=== PATIENT | female | born 1975 | race Caucasian/White ===

== ENCOUNTER 2020-05-12 09:35 | Emergency (ER) | payer MEDICAID, OTHER ==
--- NOTE | 2020-05-12 09:43 | ERPHSYRPT ---
- History of Present Illness Time Seen by Provider: 05/12/20 09:42 Source: patient Exam Limitations: no limitations Physician History: This is a 44-year-old white female who presents with 4-day history of initially having a mild sore throat, mild headache and mild cough. She also has had some myalgias and arthralgias in the last 4 days as well. This morning, her headache is still present as is her other symptoms. She has not had a fever. She has not had nausea vomiting or diarrhea. She has had some bilateral flank pain but no abdominal pain. She has not had any head injury. She states that she has not taken any Tylenol or ibuprofen for control of her symptoms. Patient denies shortness of breath and she denies chest pain. Patient denies neck pain. She also denies photophobia or light sensitivity. Timing/Duration: day(s) (4) Quality: aching Severity of Pain-Max: mild Severity of Pain-Current: mild Recent Head Trauma: no recent headache/trauma Modifying Factors: Improves With: other (Nothing) Associated Symptoms: denies symptoms Previous symptoms: no prior history Allergies/Adverse Reactions: No Known Drug Allergies Allergy (Verified 05/12/20 09:51) Travel Risk - International Travel Have you traveled outside of the country in past 3 weeks: No - Coronavirus Screening Are you exhibiting any of the following symptoms?: No Close contact with a COVID-19 positive Pt in past 14-21 Days: No - Review of Systems Constitutional: No Symptoms Eyes: No Symptoms Ears, Nose, & Throat: No Symptoms Respiratory: No Symptoms Cardiac: No Symptoms Abdominal/Gastrointestinal: No Symptoms Genitourinary Symptoms: Flank Pain (Mild bilateral) Musculoskeletal: Arthralgias, Myalgias Skin: No Symptoms Neurological: Headache Psychological: No Symptoms Endocrine: No Symptoms Hematologic/Lymphatic: No Symptoms Immunological/Allergic: No Symptoms All Other Systems: Reviewed and Negative - Past Medical History Pertinent Past Medical History: Yes - Past Surgical History Past Surgical History: Yes - Nursing Vital Signs Nursing Vital Signs: Initial Vital Signs Temperature 97.8 F 05/12/20 09:40 Pulse Rate 61 05/12/20 09:40 Blood Pressure 117/80 05/12/20 09:40 O2 Sat by Pulse Oximetry 98 05/12/20 09:40 Pain Scale Pain Intensity 8 - Physical Exam General Appearance: no apparent distress, alert, anxiety Eye Exam: PERRL/EOMI Ears, Nose, Throat Exam: pharyngeal erythema (Very mild, diffuse) Neck Exam: normal inspection, non-tender, supple, full range of motion Respiratory Exam: normal breath sounds, lungs clear, airway intact, No chest tenderness, No respiratory distress Cardiovascular Exam: regular rate/rhythm, normal heart sounds, normal peripheral pulses Gastrointestinal/Abdominal Exam: soft, normal bowel sounds, No tenderness Back Exam: normal inspection, normal range of motion, No CVA tenderness, No vertebral tenderness Extremity Exam: normal inspection, normal range of motion, pelvis stable Mental Status 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, 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 Exam: normal hearing, normal speech, PERRL, abnormal eye position Coordination/Gait Exam: normal gait, normal cerebellar function Motor/Sensory Exam: no motor deficit, no sensory deficit Skin Exam: normal color, warm, dry Lymphatic Exam: No adenopathy SpO2 Interpretation: normal O2 Delivery: Room Air - Course Nursing assessment & vital signs reviewed: Yes Ordered Tests: Active Orders 24 hr Category Date Time Status CULTURE,URINE Stat Lab 05/12/20 10:14 Received INFLUENZA A+B ADILSON Stat Lab 05/12/20 10:05 Completed [place] Screen Stat Lab 05/12/20 10:14 Completed UA W/RFX UR CULTURE Stat Lab 05/12/20 10:14 Completed Lab/Rad Data: Laboratory Results 05/12/20 05/12/20 05/12/20 Range/Units 10:14 10:14 10:14 Urine Color YELLOW (YELLOW) Urine Appearance CLEAR (CLEAR) Urine pH 6.0 (5-6) Ur Specific [place] 1.011 (1.005-1.025) Urine Protein NEGATIVE (Negative) Urine Ketones NEGATIVE (NEGATIVE) Urine Blood NEGATIVE (0-5) Jake/ul Urine Nitrite NEGATIVE (NEGATIVE) Urine Bilirubin NEGATIVE (NEGATIVE) Urine Urobilinogen NEGATIVE (0-1) mg/dL Ur Leukocyte Esterase SMALL (NEGATIVE) Urine WBC (Auto) 6-10 (0-5) /HPF Urine RBC (Auto) 0-2 (0-2) /HPF U Epithel Cells (Auto) RARE (FEW) /HPF Urine Bacteria (Auto) FEW (NEGATIVE) /HPF Urine Mucus (Auto) SLIGHT (NEGATIVE) /HPF Urine Culture Reflexed YES (NO) Urine Glucose NEGATIVE (NEGATIVE) mg/dL Monoscreen NEGATIVE (Negative) Influenza Type A Ag (NEGATIVE) Influenza Type B Ag (NEGATIVE) Group A Strep Antibody NEGATIVE (NEGATIVE) 05/12/20 Range/Units 10:05 Urine Color (YELLOW) Urine Appearance (CLEAR) Urine pH (5-6) Ur Specific [place] (1.005-1.025) Urine Protein (Negative) Urine Ketones (NEGATIVE) Urine Blood (0-5) Jake/ul Urine Nitrite (NEGATIVE) Urine Bilirubin (NEGATIVE) Urine Urobilinogen (0-1) mg/dL Ur Leukocyte Esterase (NEGATIVE) Urine WBC (Auto) (0-5) /HPF Urine RBC (Auto) (0-2) /HPF U Epithel Cells (Auto) (FEW) /HPF Urine Bacteria (Auto) (NEGATIVE) /HPF Urine Mucus (Auto) (NEGATIVE) /HPF Urine Culture Reflexed (NO) Urine Glucose (NEGATIVE) mg/dL Monoscreen (Negative) Influenza Type A Ag NEGATIVE (NEGATIVE) Influenza Type B Ag NEGATIVE (NEGATIVE) Group A Strep Antibody (NEGATIVE) - Progress Progress: improved, re-examined Counseled pt/family regarding: lab results, diagnosis, need for follow-up - Departure Departure Disposition: Home Clinical Impression: Headache, Urinary tract infection Condition: Stable Critical Care Time: No Referrals: Provider,Unknown [NON-STAFF PHY W/O PRIVILEGES] - Additional Instructions: Drink plenty of fluids. Use Tylenol and ibuprofen for headache and other aches and pain control. Follow-up with your primary care physician for persistent sym ptoms. Return to the emergency department if your symptoms worsen. Prescriptions: Cephalexin Mh 500 mg [Keflex 500 mg] 500 mg PO TID #21 capsule
[2020-05-12 10:41] LABS: Appearance CLEAR (CLEAR); Bilirubin NEGATIVE (NEGATIVE); Blood NEGATIVE Ery/ul (0-5); Epithelial Cells RARE /HPF (FEW); Glucose NEGATIVE (NEGATIVE); Ketones NEGATIVE (NEGATIVE); Leukocyte Esterase SMALL (NEGATIVE); Mucus SLIGHT /HPF (NEGATIVE); Nitrite NEGATIVE (NEGATIVE); Protein,Urine Dip NEGATIVE (Negative); Specific Gravity 1.011 (1.005-1.025); Urobilinogen NEGATIVE mg/dL (0-1)
[2020-05-12 10:42] LABS: Bacteria FEW /HPF (NEGATIVE); RBC 0-2 /HPF (0-2)
[2020-05-12 11:01] LABS: INFLUENZA A NEGATIVE (NEGATIVE); INFLUENZA B NEGATIVE (NEGATIVE)
[2020-05-12 11:13] VITALS: O2SAT 97
[2020-05-12] MEDS ORDERED: MORPHINE SULFATE 4 MG INJ IM ONE (11:15)
[2020-05-12] MEDS ORDERED: KEFLEX 500 MG PO ONE (11:15)
[2020-05-12] MEDS ORDERED: ZOFRAN ODT 4 MG PO ONE (11:16)
[2020-05-12] MEDS ORDERED: ZOFRAN ODT 4 MG ONE (11:19)
[2020-05-12] MEDS ORDERED: KEFLEX 500 MG ONE (11:19)
[2020-05-12] MEDS ORDERED: MORPHINE SULFATE 4 MG INJ ONE (11:19)
[2020-05-12 11:28] VITALS: BP 126/72; PULSE 64
== END 2020-05-12 11:34 | disposition home or self-care (01) ==
LOC: ED 09:35
DX: R51.9 Headache, unspecified (principal); N39.0 Urinary tract infection, site not specified
CPT/HCPCS: 36415; 81001; 86308; 87086; 87400; 87651; 96372; 99284; U0003; J2270; Q0162; A9270-GY

== ENCOUNTER 2020-07-31 11:58 | Emergency (ER) | payer OTHER ==
[2020-07-31 12:16] VITALS: O2SAT 98
[2020-07-31] MEDS ORDERED: DECADRON 10MG INJ. IM ONE (12:32)
[2020-07-31] MEDS ORDERED: TORAdol 30 mg Injection IM ONE (12:33)
--- NOTE | 2020-07-31 12:33 | ERPHSYRPT ---
- History of Present Illness Time Seen by Provider: 07/31/20 12:30 Exam Limitations: no limitations Patient Subjective Stated Complaint: Back pain Triage Nursing Assessment: Patient ambulated back to ED and transferred self to bed. Patient A+O x3. patient's skin pink, warm and dry. Patient complains of neck and back pain 10/10 constant sharp pain. Patient denies recent trauma or injury. Patient states she has been dealing with the pain for 3 months, but the pain is unbearable the past 3 weeks. Patient states she was seeing a chiropractor, but he refuses to see her until she sees her PCP. Patient states pain is too bad to wait to get in with PCP. Physician History: Patient is a 44-year-old female presents to emergency department with complaints of flareup of her chronic neck and back pain. Patient arrived in private vehicle. Patient is ambulatory. 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 Patient now works for [employer]. Patient states her chronic pain has gotten worse over the past 3 months likely because of her jobs. Patient denies trauma no fever. Patient started seeing a chiropractor. However she went to the chiropractor yesterday who refused to see her because he wants her to be cleared by her primary care physician first. Patient is from [place]. She recently moved to [place]. Patient is currently scheduled to see Dr. Fairchild. Patient's pain is the same in character and intensity of her usual back pain. No different characteristics. No chest pain or shortness of breath. No nausea vomiting or diaphoresis. No numbness tingling or weakness. Patient is otherwise healthy. She voices no other complaints concerns at this time. Timing/Duration: today Method of Injury: unknown (No physical trauma. Patient states that she is got chronic arthritis of her back that typically flares up spontaneously.) Quality: aching Back Pain Location: C-spine, T-spine Severity of Pain-Max: moderate (No radiation of pain.) Severity of Pain-Current: mild Modifying Factors: Improves With: movement Associated Symptoms: denies symptoms Previous symptoms: same symptoms as today Allergies/Adverse Reactions: No Known Drug Allergies Allergy (Verified 07/31/20 12:06) Hx Influenza Vaccination/Date Given: No Hx Pneumococcal Vaccination/Date Given: No Immunizations Up to Date: Yes Travel Risk - International Travel Have you traveled outside of the country in past 3 weeks: No - Coronavirus Screening Are you exhibiting any of the following symptoms?: No Close contact with a COVID-19 positive Pt in past 14-21 Days: No - Vaccine Status Have you recieved a Covid-19 vaccination: Yes 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 - Vaccination Dates Date of 2cond Vaccination (if applicable): unknown - Review of Systems Constitutional: No Symptoms, No Fever, No Chills Eyes: No Symptoms Ears, Nose, & Throat: No Symptoms Respiratory: No Symptoms, No Cough, No Dyspnea Cardiac: No Symptoms, No Chest Pain, No Edema, No Syncope Abdominal/Gastrointestinal: No Symptoms, No Abdominal Pain, No Nausea, No Vomiting, No Diarrhea Genitourinary Symptoms: No Symptoms, No Dysuria Musculoskeletal: No Symptoms, No Back Pain, No Neck Pain Skin: No Symptoms, No Rash Neurological: No Symptoms, No Dizziness, No Focal Weakness, No Sensory Changes Psychological: No Symptoms Endocrine: No Symptoms Hematologic/Lymphatic: No Symptoms Immunological/Allergic: No Symptoms All Other Systems: Reviewed and Negative - Past Medical History Pertinent Past Medical History: Yes Neurological History: No Pertinent History ENT History: No Pertinent History Respiratory History: No Pertinent History Endocrine Medical History: No Pertinent History Other Medical History: bipolor, PTSD, manic depression, arthritis, scoliosis - Past Surgical History Past Surgical History: Yes Female Surgical History: Tubal Ligation Other Surgical History: breast augmentation - Social History Smoking Status: Current every day smoker How long have you smoked: years Exposure to second hand smoke: No Drug Use: marijuana Patient Lives Alone: Yes - Female History Hx Last Menstrual Period: 2 months ago Hx Now: No - Nursing Vital Signs Nursing Vital Signs: Initial Vital Signs Temperature 98.2 F 07/31/20 12:09 Pulse Rate 86 07/31/20 12:09 Respiratory Rate 18 07/31/20 12:09 Blood Pressure 149/94 07/31/20 12:09 O2 Sat by Pulse Oximetry 98 07/31/20 12:09 Pain Scale Pain Intensity 10 - Physical Exam General Appearance: no apparent distress, alert Eye Exam: PERRL/EOMI, eyes nml inspection Neck Exam: normal inspection, non-tender, supple, full range of motion, other (No limitations in range of motion however patient's movements are guarded.), No meningismus, No midline tenderness Respiratory Exam: normal breath sounds, lungs clear, No respiratory distress Cardiovascular Exam: regular rate/rhythm, normal heart sounds Gastrointestinal Exam: soft, No tenderness, No mass Extremity Exam: normal inspection, normal range of motion, No calf tenderness, No pedal edema Peripheral Pulses: dorsalis-pedis (R): 2+, dorsalis-pedis (L): 2+ Neurologic Exam: alert, oriented x 3, cooperative, exhaust tender II-XII nml as tested, normal mood/affect, nml station & gait, sensation nml, No motor deficits Skin Exam: normal color, warm, dry, No rash Lymphatic Exam: No adenopathy SpO2 Interpretation: normal SpO2: 98 O2 Delivery: Room Air - Course Nursing assessment & vital signs reviewed: Yes Ordered Tests: Medication Summary Discontinued Medications Generic Name Dose Route Start Last Admin Trade Name Wardq PRN Reason Stop Dose Admin Dexamethasone Sodium Phosphate 6 mg 07/31/20 12:32 07/31/20 12:44 Decadron 10mg Inj. IM 07/31/20 12:33 6 mg STAT ONE Administration Dexamethasone Sodium Phosphate Confirm 07/31/20 12:39 Decadron 10mg Inj. Administered 07/31/20 12:40 Dose 10 mg .ROUTE .STK-MED ONE Ketorolac Tromethamine 30 mg 07/31/20 12:33 07/31/20 12:44 Toradol 30 Mg Injection IM 07/31/20 12:34 30 mg STAT ONE Administration Ketorolac Tromethamine Confirm 07/31/20 12:39 Toradol 30 Mg Injection Administered 07/31/20 12:40 Dose 30 mg .ROUTE .STK-MED ONE - Progress Progress: improved Progress Note: Patient reassessed. Pain significantly improved. Patient states is ready for discharge. Patient currently has an appointment scheduled with Dr. Fairchild. However patient was advised to call the office and to follow-up sooner than the scheduled appointment. Patient agrees to call today and to arrange a follow-up for early next week. Patient voices no other complaints concerns at this time. Will discharge home. 07/31/20 13:42 Counseled pt/family regarding: diagnosis, need for follow-up - Departure Departure Disposition: Home Clinical Impression: Chronic pain Condition: Stable Critical Care Time: No Referrals: DOCTOR,NO FAMILY [NON-STAFF PHY W/O PRIVILEGES] - DAVON FAIRCHILD [Primary Care Provider] - Additional Instructions: Discharge/Care Plan RICHARD MATHIAS was seen on 07/31/20 in the Emergency Room. The patient was counseled regarding Diagnosis,Lab results, Imaging studies, need for follow up and when to return to the Emergency Room. Prescriptions given: Discharge Note I have spoken with the patient and/or caregivers. I have explained the patient's condition, diagnosis and treatment plan based on the information available to me at this time. I have answered the patient's and/or caregiver's questions and addressed any concerns. The patient and/or caregivers have as good understanding of the patient's diagnosis, condition and treatment plan as can be expected at this point. The vital signs have been stable. The patient's condition is stable and appropriate for discharge from the emergency department. The patient will pursue further outpatient evaluation with the primary care physician or other designated or consulting physician as outlined in the discharge instructions. The patient and/or caregivers are agreeable to this plan of care and follow-up instructions have been explained in detail. The patient and/or caregivers have received these instruction. The patient/and or caregivers are aware that any significant change in condition or worsening of symptoms should prompt an immediate return to this or the closest emergency department or call 911. Prescriptions: Ketorolac Tromethamine [Toradol] 10 mg PO TID 5 Days #15 tablet
[2020-07-31] MEDS ORDERED: DECADRON 10MG INJ. ONE (12:39)
[2020-07-31] MEDS ORDERED: TORAdol 30 mg Injection ONE (12:39)
[2020-07-31 14:09] VITALS: BP 128/85; PULSE 68
== END 2020-07-31 14:00 | disposition home or self-care (01) ==
LOC: ED 11:58
DX: G89.29 Other chronic pain (principal)
CPT/HCPCS: 96372; 99284; J1100; J1885

== ENCOUNTER 2020-09-27 11:54 | Emergency (ER) | payer OTHER ==
[2020-09-27] MEDS ORDERED: MORPHINE SULFATE 2 MG INJ IV ONE (12:23)
[2020-09-27] MEDS ORDERED: Sodium Chloride 0.9% 1000 ML 1,000 ML IV STA (12:23)
[2020-09-27] MEDS ORDERED: TYLENOL 325 MG PO ONE (12:23)
[2020-09-27] MEDS ORDERED: PROTONIX 40 MG IV IV ONE ×2 (12:23→12:50)
[2020-09-27] MEDS ORDERED: Zofran 4 MG/2 ML VIAL IV ONE (12:23)
[2020-09-27] MEDS ORDERED: Zofran 4 MG/2 ML VIAL ONE (12:50)
[2020-09-27] MEDS ORDERED: MORPHINE SULFATE 2 MG INJ ONE (12:50)
[2020-09-27] MEDS ORDERED: TYLENOL 325 MG ONE (12:50)
[2020-09-27] MEDS ORDERED: Sodium Chloride 0.9% 1000 ML 1,000 ML ONE (12:51)
[2020-09-27 13:19] LABS: ALBUMIN 4.4 g/dL (3.5-5.0); ALKALINE PHOSPHATASE 66 U/L (38-126); ANION GAP 15.7 MEQ/L (5-15); BLOOD UREA NITROGEN 10 mg/dL (7-17); CHLORIDE 102 mmol/L (98-107); Calcium 9.2 mg/dL (8.4-10.2); Carbon Dioxide 23 mmol/L (22-30); Creatinine 1 0.62 mg/dL (0.52-1.04); EST GLOMERULAR FILTRATION RATE > 60.0 ML/MIN; Glucose 92 mg/dL (74-106); LIPASE 53 U/L (23-300); Potassium 4.7 mmol/L (3.5-5.1); SGOT/AST 30 U/L (14-36); SGPT/ALT 13 U/L (0-35); SODIUM 136 mmol/L (137-145); Total Protein 7.8 g/dL (6.3-8.2)
[2020-09-27 13:21] LABS: Absolute Neutrophil Ct (ANC) 13.98 (1.4-6.9); BASOPHIL % 0.3 % (0.0-0.4); Basophil (Absolute #) 0.06 (0-0.4); Eosinophil % 2.1 % (0.00-5.0); Eosinophil (Absolute #) 0.37 (0-0.5); Hematocrit 45.9 % (35-47); Hemoglobin 15.1 gm/dl (12.0-16.0); Lymphocyte (Absolute #) 2.26 (1.0-4.6); Lymphocytes % 12.9 % (24.0-44.0); Mean Cell Volume 92.9 fl (78-100); Mean Corpuscular Hemoglobin 30.6 pg (26-32); Mean Corpuscular Hgb Concent. 32.9 g/dl (32-36); Mean Platelet Volume 11.3 fl (7.5-11.0); Monocyte (Absolute #) 0.89 (0.0-1.3); Monocytes % 5.1 % (0.0-12.0); Neutrophil % 79.6 % (36.0-66.0); Platelet Count 280 K/mm3 (150-450); Red Blood Count 4.94 M/mm3 (4.1-5.4); Red Cell Distribution Width 14.7 % (11.5-14.0); White Blood Count 17.6 K/mm3 (4.0-10.5)
--- NOTE | 2020-09-27 13:37 | ERPHSYRPT ---
- History of Present Illness Time Seen by Provider: 09/27/20 12:02 Patient Subjective Stated Complaint: "I feel like I have a hangover" body aches, headache, nausea Triage Nursing Assessment: pt to ED c/o body aches, ANN, and nausea since waking this am. reports she feels "likeI have a hangover, but I don't get hangovers." does report drinking one glass of whiskey last night but normally drinks more than that few days a week. no vomiting, fever, COVID exposure. Physician History: 44 years old fairly healthy female presented in ER with chief complaint of sudden onset nausea and dry heaving waking her up from sleep and multiple episodes of loose watery stool without hematochezia. Complaining of abdominal dull aching/cramping mild to moderate with episodes of diarrhea and dry heaving. Also reports generalized body ache fatigue tiredness, headache sinus pressure as it feels she is in a hangover after alcohol but she did not drink any alcohol.. She did receive both Covid vaccines and denies any known sick contacts. Timing/Duration: today, constant, sudden, worse Activities at Onset: sleep Quality: aching Abdominal Pain Onset Location: generalized abdomen Pain Radiation: no radiation Severity of Pain-Max: mild Severity of Pain-Current: none Modifying Factors: Worsens With: vomiting Associated Symptoms: No diarrhea, No nausea, No vomiting Previous symptoms: no prior history Allergies/Adverse Reactions: No Known Drug Allergies Allergy (Verified 09/27/20 12:11) Home Medications: Cyclobenzaprine HCl 5 mg PO HS 09/27/20 [History] Naproxen 500 mg [Naprosyn 500 MG] 500 mg PO BIDPRN PRN 09/27/20 [History] Hx Tetanus, Diphtheria Vaccination/Date Given: No Hx Influenza Vaccination/Date Given: No Hx Pneumococcal Vaccination/Date Given: No Immunizations Up to Date: No Travel Risk - International Travel Have you traveled outside of the country in past 3 weeks: No - Coronavirus Screening Are you exhibiting any of the following symptoms?: Yes Symptoms: Headaches/Body Aches/Fatigue Close contact with a COVID-19 positive Pt in past 14-21 Days: No - Vaccine Status Have you recieved a Covid-19 vaccination: Yes Gift Consultant: Moderna - Vaccination Dates Date of 2cond Vaccination (if applicable): May - Review of Systems Constitutional: Chills, Fatigue, Weakness Eyes: No Symptoms Ears, Nose, & Throat: Nose Congestion, Nose Discharge Respiratory: No Symptoms Cardiac: No Symptoms Abdominal/Gastrointestinal: Abdominal Pain, Nausea, Vomiting, Diarrhea Genitourinary Symptoms: No Symptoms Musculoskeletal: Myalgias Skin: No Symptoms Neurological: No Symptoms Psychological: Anxiety Endocrine: No Symptoms Hematologic/Lymphatic: No Symptoms Immunological/Allergic: No Symptoms - Past Medical History Pertinent Past Medical History: Yes Neurological History: No Pertinent History ENT History: No Pertinent History Respiratory History: No Pertinent History Endocrine Medical History: No Pertinent History Other Medical History: bipolor, PTSD, manic depression, arthritis, scoliosis - Past Surgical History Past Surgical History: Yes Female Surgical History: Tubal Ligation Other Surgical History: breast augmentation - Social History Smoking Status: Current every day smoker How long have you smoked: years Exposure to second hand smoke: No Drug Use: marijuana Patient Lives Alone: Yes - Female History Hx Now: No (tubal) - Nursing Vital Signs Nursing Vital Signs: Initial Vital Signs Temperature 97.8 F 09/27/20 12:02 Pulse Rate 65 09/27/20 12:02 Respiratory Rate 16 09/27/20 12:02 Blood Pressure 153/98 09/27/20 12:02 O2 Sat by Pulse Oximetry 100 09/27/20 12:02 Pain Scale Pain Intensity 0 - Physical Exam General Appearance: no apparent distress, alert, anxiety Eye Exam: PERRL/EOMI, eyes nml inspection Ears, Nose, Throat Exam: normal ENT inspection, TMs normal, pharynx normal Neck Exam: normal inspection, non-tender, supple, full range of motion Respiratory Exam: normal breath sounds, lungs clear Cardiovascular Exam: regular rate/rhythm, normal heart sounds Gastrointestinal/Abdomen Exam: soft, normal bowel sounds, No tenderness Back Exam: normal inspection, normal range of motion, No CVA tenderness Extremity Exam: normal inspection, normal range of motion, pelvis stable Neurologic Exam: alert, oriented x 3, cooperative, manager dish II-XII nml as tested, normal mood/affect, nml cerebellar function, nml station & gait, sensation nml Skin Exam: normal color SpO2 Interpretation: normal SpO2: 100 O2 Delivery: Room Air Ordered Tests: Active Orders 24 hr Category Date Time Status IV Insertion STAT Care 09/27/20 12:23 Completed NPO (ED) STAT Care 09/27/20 12:23 Completed OBSTR/ACUTE ABDOMEN SERIES Stat Exams 09/27/20 12:23 Taken CBC W DIFF Stat Lab 09/27/20 12:50 Completed CMP Stat Lab 09/27/20 12:50 Completed HCG,QUALITATIVE URINE Stat Lab 09/27/20 12:32 Completed LIPASE Stat Lab 09/27/20 12:50 Completed UA W/RFX UR CULTURE Stat Lab 09/27/20 12:32 Completed Medication Summary Discontinued Medications Generic Name Dose Route Start Last Admin Trade Name Yarelis PRN Reason Stop Dose Admin Acetaminophen 975 mg 09/27/20 12:23 09/27/20 12:55 Tylenol 325 Mg PO 09/27/20 12:24 975 mg STAT ONE Administration Acetaminophen Confirm 09/27/20 12:50 Tylenol 325 Mg Administered 09/27/20 12:51 Dose 975 mg .ROUTE .STK-MED ONE Sodium Chloride 1,000 mls @ 999 mls/hr 09/27/20 12:23 09/27/20 13:56 Sodium Chloride 0.9% 1000 Ml IV 09/27/20 13:23 Infused .Q1H1M STA Infusion Sodium Chloride Confirm 09/27/20 12:51 Sodium Chloride 0.9% 1000 Ml Administered 09/27/20 12:52 Dose 1,000 mls @ ud .ROUTE .STK-MED ONE Morphine Sulfate 2 mg 09/27/20 12:23 09/27/20 12:56 Morphine Sulfate 2 Mg Inj IV 09/27/20 12:24 2 mg STAT ONE Administration Morphine Sulfate Confirm 09/27/20 12:50 Morphine Sulfate 2 Mg Inj Administered 09/27/20 12:51 Dose 2 mg .ROUTE .STK-MED ONE Ondansetron HCl 4 mg 09/27/20 12:23 09/27/20 12:56 Zofran 4 Mg/2 Ml Vial IV 09/27/20 12:24 4 mg STAT ONE Administration Ondansetron HCl Confirm 09/27/20 12:50 Zofran 4 Mg/2 Ml Vial Administered 09/27/20 12:51 Dose 4 mg .ROUTE .STK-MED ONE Pantoprazole Sodium 40 mg 09/27/20 12:23 09/27/20 12:56 Protonix 40 Mg Iv IV 09/27/20 12:24 40 mg STAT ONE Administration Pantoprazole Sodium Confirm 09/27/20 12:50 Protonix 40 Mg Iv Administered 09/27/20 12:51 Dose 40 mg IV .STK-MED ONE Lab/Rad Data: Laboratory Result Diagrams 09/27/20 12:50 09/27/20 12:50 Laboratory Results 09/27/20 09/27/20 09/27/20 Range/Units 13:00 12:50 12:50 WBC 17.6 H (4.0-10.5) K/mm3 RBC 4.94 (4.1-5.4) M/mm3 Hgb 15.1 (12.0-16.0) gm/dl Hct 45.9 (35-47) % MCV 92.9 (78-100) fl MCH 30.6 (26-32) pg MCHC 32.9 (32-36) g/dl RDW 14.7 H (11.5-14.0) % Plt Count 280 (150-450) K/mm3 MPV 11.3 H (7.5-11.0) fl Gran % 79.6 H (36.0-66.0) % Eos # (Auto) 0.37 (0-0.5) Absolute Lymphs (auto) 2.26 (1.0-4.6) Absolute Monos (auto) 0.89 (0.0-1.3) Lymphocytes % 12.9 L (24.0-44.0) % Monocytes % 5.1 (0.0-12.0) % Eosinophils % 2.1 (0.00-5.0) % Basophils % 0.3 (0.0-0.4) % Absolute Granulocytes 13.98 H (1.4-6.9) Basophils # 0.06 (0-0.4) Sodium 136 L (137-145) mmol/L Potassium 4.7 (3.5-5.1) mmol/L Chloride 102 (98-107) mmol/L Carbon Dioxide 23 (22-30) mmol/L Anion Gap 15.7 H (5-15) MEQ/L BUN 10 (7-17) mg/dL Creatinine 0.62 (0.52-1.04) mg/dL Estimated GFR > 60.0 ML/MIN Glucose 92 (74-106) mg/dL Calcium 9.2 (8.4-10.2) mg/dL Total Bilirubin 0.80 (0.2-1.3) mg/dL AST 30 (14-36) U/L ALT 13 (0-35) U/L Alkaline Phosphatase 66 (38-126) U/L Serum Total Protein 7.8 (6.3-8.2) g/dL Albumin 4.4 (3.5-5.0) g/dL Lipase 53 (23-300) U/L Urine Color (YELLOW) Urine Appearance (CLEAR) Urine pH (5-6) Ur Specific [place] (1.005-1.025) Urine Protein (Negative) Urine Ketones (NEGATIVE) Urine Blood (0-5) Jake/ul Urine Nitrite (NEGATIVE) Urine Bilirubin (NEGATIVE) Urine Urobilinogen (0-1) mg/dL Ur Leukocyte Esterase (NEGATIVE) Urine WBC (Auto) (0-5) /HPF Urine RBC (Auto) (0-2) /HPF U Epithel Cells (Auto) (FEW) /HPF Urine Bacteria (Auto) (NEGATIVE) /HPF Urine Culture Reflexed (NO) Urine Glucose (NEGATIVE) mg/dL Urine HCG, Qual (Negative) SARS-CoV-2 (PCR) NEGATIVE (NEGATIVE) 09/27/20 09/27/20 Range/Units 12:32 12:32 WBC (4.0-10.5) K/mm3 RBC (4.1-5.4) M/mm3 Hgb (12.0-16.0) gm/dl Hct (35-47) % MCV (78-100) fl MCH (26-32) pg MCHC (32-36) g/dl RDW (11.5-14.0) % Plt Count (150-450) K/mm3 MPV (7.5-11.0) fl Gran % (36.0-66.0) % Eos # (Auto) (0-0.5) Absolute Lymphs (auto) (1.0-4.6) Absolute Monos (auto) (0.0-1.3) Lymphocytes % (24.0-44.0) % Monocytes % (0.0-12.0) % Eosinophils % (0.00-5.0) % Basophils % (0.0-0.4) % Absolute Granulocytes (1.4-6.9) Basophils # (0-0.4) Sodium (137-145) mmol/L Potassium (3.5-5.1) mmol/L Chloride (98-107) mmol/L Carbon Dioxide (22-30) mmol/L Anion Gap (5-15) MEQ/L BUN (7-17) mg/dL Creatinine (0.52-1.04) mg/dL Estimated GFR ML/MIN Glucose (74-106) mg/dL Calcium (8.4-10.2) mg/dL Total Bilirubin (0.2-1.3) mg/dL AST (14-36) U/L ALT (0-35) U/L Alkaline Phosphatase (38-126) U/L Serum Total Protein (6.3-8.2) g/dL Albumin (3.5-5.0) g/dL Lipase (23-300) U/L Urine Color YELLOW (YELLOW) Urine Appearance SLIGHTLY CLOUDY (CLEAR) Urine pH 7.0 (5-6) Ur Specific [place] 1.015 (1.005-1.025) Urine Protein NEGATIVE (Negative) Urine Ketones NEGATIVE (NEGATIVE) Urine Blood NEGATIVE (0-5) Jake/ul Urine Nitrite NEGATIVE (NEGATIVE) Urine Bilirubin NEGATIVE (NEGATIVE) Urine Urobilinogen NEGATIVE (0-1) mg/dL Ur Leukocyte Esterase SMALL (NEGATIVE) Urine WBC (Auto) 6-10 (0-5) /HPF Urine RBC (Auto) 0-2 (0-2) /HPF U Epithel Cells (Auto) RARE (FEW) /HPF Urine Bacteria (Auto) RARE (NEGATIVE) /HPF Urine Culture Reflexed NO (NO) Urine Glucose NEGATIVE (NEGATIVE) mg/dL Urine HCG, Qual NEGATIVE (Negative) SARS-CoV-2 (PCR) (NEGATIVE) - Progress Progress: improved, re-examined Progress Note: 09/27/20 14:25 44 years old is evaluated for nausea/dry heaving and diarrhea with some abdomi nal cramping. She patient's cramps are moderate improved on presentation. No peritoneal signs on evaluation initially and on repeated evaluation. She is given Zofran and fluids, on reevaluation feeling much better. Work-up showed white count of 17, grossly unremarkable chemistries. Questionable UTI but does not have any symptoms. Patient feels much better and wants to go home. I have obtained x-rays which showed nonspecific bowel gas pattern reviewed by me, official report is pending. She has a white count of 17 but no previous comparison available, nontoxic appearing. This could be secondary to acute reaction to multiple episodes of diarrhea and dry heaving/vomiting. Abdominal exam remained nonsurgical. Discussed signs symptoms of worsening needing return to ER which patient seemed understanding. Stable for discharge. Counseled pt/family regarding: lab results, diagnosis, need for follow-up, rad results, smoking cessation - Departure Departure Disposition: Home Clinical Impression: Gastroenteritis Condition: Stable Critical Care Time: No Referrals: DAVON FAIRCHILD [Primary Care Provider] - (2 days for reevaluation) Instructions: Viral Gastroenteritis, Adult (DC), Headache, Adult (DC) Additional Instructions: Take Tylenol and Zofran as needed. Keep yourself well-hydrated with drinking plenty of fluids. Follow-up with primary care physician for reevaluation. Return to ER for intractable abdominal pain/vomiting/fever chills etc. Prescriptions: Ondansetron ODT 4 MG [Zofran Odt 4 mg] 4 mg PO Q6H PRN PRN #10 tablet PRN Reason: Vomiting
[2020-09-27 14:07] LABS: Appearance SLIGHTLY CLOUDY (CLEAR); Bacteria RARE /HPF (NEGATIVE); Bilirubin NEGATIVE (NEGATIVE); Blood NEGATIVE Ery/ul (0-5); Epithelial Cells RARE /HPF (FEW); Glucose NEGATIVE (NEGATIVE); Ketones NEGATIVE (NEGATIVE); Leukocyte Esterase SMALL (NEGATIVE); Nitrite NEGATIVE (NEGATIVE); Protein,Urine Dip NEGATIVE (Negative); RBC 0-2 /HPF (0-2); Specific Gravity 1.015 (1.005-1.025); Urobilinogen NEGATIVE mg/dL (0-1)
[2020-09-27 14:17] VITALS: BP 122/90; PULSE 60
[2020-09-27 14:27] VITALS: O2SAT 100
--- NOTE | 2020-09-27 19:41 | XRAY ---
Indication: Vomiting, bodyaches, diarrhea, nausea, and vomiting. Comparison: Chest exam February 10, 2009. 2 view abdomen nonacute and nonobstructed. Solid organs unremarkable. Osseous structures intact with mild levoscoliosis centered at L1. Single AP chest remains hyperinflated and clear. Heart is not enlarged. Bony thorax intact. Impression: Negative abdomen. Stable nonacute chest. Incidental scoliosis.
== END 2020-09-27 14:32 | disposition home or self-care (01) ==
LOC: ED 11:54
DX: K29.70 Gastritis, unspecified, without bleeding (principal)
CPT/HCPCS: 36000; 36415; 74022; 80053; 81001; 83690; 84703; 85025; 96374; 96375; 99284; U0003; J2270; J2405; A9270-GY

== ENCOUNTER 2020-12-21 22:27 | Emergency (ER) | payer OTHER ==
[2020-12-21] MEDS ORDERED: solu-MEDROL 125 MG, Sterile H2O 10 ml 2 ML IV ONE ×2 (22:50)
[2020-12-21] MEDS ORDERED: Pepcid 20 MG VIAL IV ONE ×2 (22:50→23:06)
[2020-12-21] MEDS ORDERED: BENADRYL 50 MG/ML IV ONE (22:50)
--- NOTE | 2020-12-21 23:01 | ERPHSYRPT ---
- History of Present Illness Time Seen by Provider: 12/21/20 22:41 Source: patient Exam Limitations: no limitations Physician History: 45 years old female presented in the ER with chief complaint of right angle of mandible/upper neck/front of ear pain and swelling almost half an hour prior to arrival after she did eat some steak with increasing pressure tightness and throbbing pain. Also reports having scratchiness in the throat but no difficulty breathing. Denies any history of any allergies or previous anaphylactic reaction. Timing/Duration: hour(s) (0.5), constant, sudden, worse Severity: moderate Associated Symptoms: denies symptoms Allergies/Adverse Reactions: No Known Drug Allergies Allergy (Verified 09/27/20 12:11) Home Medications: Cyclobenzaprine HCl 5 mg PO HS 09/27/20 [History] Naproxen 500 mg [Naprosyn 500 MG] 500 mg PO BIDPRN PRN 09/27/20 [History] Hx Tetanus, Diphtheria Vaccination/Date Given: No Hx Influenza Vaccination/Date Given: No Hx Pneumococcal Vaccination/Date Given: No Travel Risk - Vaccine Status Have you recieved a Covid-19 vaccination: Yes Medical Assembler: Moderna - Vaccination Dates Date of 2cond Vaccination (if applicable): June - Review of Systems Constitutional: No Symptoms Eyes: No Symptoms Ears, Nose, & Throat: Mouth Swelling, Throat Pain, Throat Swelling Respiratory: No Symptoms Cardiac: No Symptoms Abdominal/Gastrointestinal: No Symptoms Genitourinary Symptoms: No Symptoms Musculoskeletal: No Symptoms Skin: No Symptoms Neurological: No Symptoms Psychological: Anxiety Endocrine: No Symptoms Hematologic/Lymphatic: No Symptoms - Past Medical History Pertinent Past Medical History: Yes Neurological History: No Pertinent History ENT History: No Pertinent History Cardiac History: No Pertinent History Respiratory History: Other Endocrine Medical History: No Pertinent History Musculoskeletal History: Degenerative Disk Disease, Osteoarthritis Other Medical History: BIPOLAR DISEASE - STATES DOESN'T TAKE MEDICATION FOR IT BECAUSE SHE DOESN'T LIKE HOW IT MAKES HER FEEL. WAS QUARANTINED UNTIL LAST TUESDAY DUE TO HEADACHE, DIARRHEA, AND FEVER. STATES WAS TESTED AND WAS NEGATIVE BUT CONTINUED QUARANTINE X 2 WEEKS. NO SYMPTOMS FOR THE PAST 12 DAYS. PATIENT IS FULLY VACCINATED. - Past Surgical History Past Surgical History: Yes Female Surgical History: Tubal Ligation Other Surgical History: breast augmentation - Social History Smoking Status: Current every day smoker How long have you smoked: years Exposure to second hand smoke: No Drug Use: marijuana Patient Lives Alone: Yes - Physical Exam General Appearance: no apparent distress, alert Eye Exam: PERRL/EOMI, eyes nml inspection Ears, Nose, Throat Exam: TMs normal, pharyngeal erythema Neck Exam: normal inspection, non-tender, supple, full range of motion, other (Mild swelling anterior to right ear, angle of mandible.) Respiratory Exam: normal breath sounds, lungs clear Cardiovascular Exam: regular rate/rhythm, normal heart sounds Extremity Exam: normal inspection, normal range of motion Neurologic Exam: alert, oriented x 3, cooperative Skin Exam: normal color SpO2 Interpretation: normal SpO2: 96 O2 Delivery: Room Air Ordered Tests: Medication Summary Discontinued Medications Generic Name Dose Route Start Last Admin Trade Name Freq PRN Reason Stop Dose Admin Methylprednisolone Sodium 0 mg 12/21/20 22:50 Succinate 125 mg/ Sterile IV 12/21/20 22:51 Water 2 ml STAT ONE Diphenhydramine HCl 25 mg 12/21/20 22:50 Diphenhydramine Hcl 50 Mg/Ml Vial IV 12/21/20 22:51 STAT ONE Famotidine 20 mg 12/21/20 22:50 Famotidine 20 Mg/1 Vial IV 12/21/20 22:51 STAT ONE - Progress Progress: improved Progress Note: 12/21/20 I believe she has some kind of allergic reaction to some contents in the food she took. She is given Solu-Medrol/Benadryl/Pepcid, observed and started to improve. No difficulty breathing. No tongue swelling. Lungs bilateral clear to auscultation. We will continue with these meds to go home and outpatient follow-up recommended. Counseled pt/family regarding: diagnosis, need for follow-up - Departure Departure Disposition: Home Clinical Impression: Allergic reaction Qualifiers: Encounter type: initial encounter Qualified Code(s): T78.40XA - Allergy, unspecified, initial encounter Condition: Stable Critical Care Time: No Referrals: DAVON FAIRCHILD MD [Primary Care Provider] - Follow up/PCP as directed (Call tomorrow for reevaluation in 1 to 2 days) Instructions: Anaphylaxis (DC) Prescriptions: Diphenhydramine HCl 25 mg [Benadryl 25 mg Capsule] 25 mg PO Q4H PRN PRN #20 cap PRN Reason: Allergies Prednisone 20 mg [Deltasone 20 mg] 60 mg PO DAILY 5 Days #15 tablet Epinephrine [Epipen] 0.3 mg IM DIRECTIONS UNKNOWN 1 Days #0.3 ml Famotidine 20 mg [Pepcid 20 MG] 20 mg PO BID #10 tablet
[2020-12-21] MEDS ORDERED: Sterile H2O 10 ml IJ ONE (23:06)
[2020-12-21] MEDS ORDERED: BENADRYL 50 MG/ML ONE (23:06)
[2020-12-21] MEDS ORDERED: solu-MEDROL ONE (23:06)
== END 2020-12-22 00:20 | disposition home or self-care (01) ==
LOC: ED 22:27
DX: T78.40XA Allergy, unspecified, initial encounter (principal); R22.1 Localized swelling, mass and lump, neck; Z72.0 Tobacco use
CPT/HCPCS: 96374; 96375; 99284; J1200; J2930

== ENCOUNTER 2022-06-29 10:30 | Observation (INO) | payer OTHER ==
[2022-06-29 11:24] LABS: Absolute Neutrophil Ct (ANC) 6.36 x10^3/uL (1.4-6.9); BASOPHIL % 0.7 % (0.0-0.4); Basophil (Absolute #) 0.07 x10^3/uL (0-0.4); Eosinophil % 3.6 % (0.00-5.0); Eosinophil (Absolute #) 0.36 x10^3/uL (0-0.5); Hematocrit 41.3 % (35-47); IMMATURE GRAN # 0.02 x10^3u/L (0.00-0.03); IMMATURE GRAN % 0.2 % (0.00-0.4); Lymphocyte (Absolute #) 2.54 x10^3/uL (1.0-4.6); Lymphocytes % 25.6 % (24.0-44.0); Mean Cell Volume 90.2 fL (78-100); Mean Corpuscular Hemoglobin 30.6 pg (26-32); Mean Corpuscular Hgb Concent. 33.9 g/dL (32-36); Mean Platelet Volume 10.4 fL (7.5-11.0); Monocyte (Absolute #) 0.57 x10^3/uL (0.0-1.3); Monocytes % 5.7 % (0.0-12.0); Neutrophil % 64.2 % (36.0-66.0); Platelet Count 297 x10^3/uL (150-450); Red Blood Count 4.58 x10^6/uL (4.1-5.4); Red Cell Distribution Width 13.2 % (11.5-14.0); White Blood Count 9.9 x10^3/uL (4.0-10.5)
--- NOTE | 2022-06-29 11:36 | XRAY ---
Indication: Palpitations. Comparison: September 27, 2020 Portable chest again demonstrates normal heart, lungs, and bony thorax.
[2022-06-29 11:47] LABS: ALBUMIN 4.1 g/dL (3.5-5.0); ALKALINE PHOSPHATASE 59 U/L (38-126); ANION GAP 13.2 MEQ/L (5-15); BLOOD UREA NITROGEN 10 mg/dL (7-17); CHLORIDE 106 mmol/L (98-107); Calcium 8.9 mg/dL (8.4-10.2); Carbon Dioxide 24 mmol/L (22-30); EST GLOMERULAR FILTRATION RATE > 60.0 ML/MIN; Glucose 88 mg/dL (74-106); NT PRO BNPII 123 pg/mL (<300); Potassium 4.5 mmol/L (3.5-5.1); SGOT/AST 26 U/L (14-36); SGPT/ALT 14 U/L (0-35); SODIUM 139 mmol/L (137-145); Total Protein 7.4 g/dL (6.3-8.2)
--- NOTE | 2022-06-29 14:14 | ERPHSYRPT ---
- History of Present Illness Time Seen by Provider: 06/29/22 11:00 Historian: patient Exam Limitations: no limitations Patient Subjective Stated Complaint: PT HERE FOR FEELING FLUTTERS IN HER CHEST OFF AND ON FRO YEARS, RECENTLY GOT A FIT BIT THAT SHOWED SHE NEEDED TO BE SEEN FOR IRREGULAR HEART RATE . PT SHOWED NURSE STRIP FROM FIT BIT. Triage Nursing Assessment: PT ALERT, RESP EASY, SKIN W/D/P. ABD SOFT, NO EDEMA NOTED, MOVES ALL EXT WELL , Physician History: Patient is a 46-year-old female presents to our ED as a referral from her primary care doctor for evaluation of heart palpitations. Patient has been experiencing heart palpitations intermittently. Patient is a smoker. No active palpitation at this time. Patient has some pain in her shoulder which she attributes to arthritis. No associated nausea vomiting or diaphoresis. Symptoms are intermittent. Symptoms are moderate in intensity. No specific worsening or improving factors. Patient voices no other complaints or concerns at this time. Portions of this note were created with voice recognition technology. There may be grammatical, spelling, punctuation or sound alike errors Timing/Duration: today Activities at Onset: none Quality: other (Flutter sensation and chest) Location: substernal Chest Pain Radiation: arm Severity of Pain-Max: moderate Severity of Pain-Current: mild Modifying Factors: Improves With: nothing Associated Symptoms: denies symptoms Prior Chest Pain/Cardiac Workup: no prior chest pain Nitro Today/Relief: no nitro taken today Aspirin Treatment Today: no aspirin today Allergies/Adverse Reactions: No Known Drug Allergies Allergy (Verified 12/21/20 23:04) Home Medications: Bupropion HCl Xl 150 mg [Wellbutrin XL 150 MG] 150 mg PO DAILY 06/29/22 [H istory] Naproxen 500 mg [Naprosyn 500 MG] 500 mg PO BID 06/29/22 [History] Hx Tetanus, Diphtheria Vaccination/Date Given: No Hx Influenza Vaccination/Date Given: No Hx Pneumococcal Vaccination/Date Given: No Immunizations Up to Date: Yes Travel Risk - International Travel Have you traveled outside of the country in past 3 weeks: No - Coronavirus Screening Are you exhibiting any of the following symptoms?: No Close contact with a COVID-19 positive Pt in past 14-21 Days: No - Vaccine Status Have you recieved a Covid-19 vaccination: Yes 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 - Vaccination Dates Date of 2cond Vaccination (if applicable): June 2020 - Review of Systems Constitutional: No Symptoms, No Fever, No Chills Eyes: No Symptoms Ears, Nose, & Throat: No Symptoms Respiratory: No Symptoms, No Cough, No Dyspnea Cardiac: No Symptoms, No Chest Pain, No Edema, No Syncope Abdominal/Gastrointestinal: No Symptoms, No Abdominal Pain, No Nausea, No Vomiting, No Diarrhea Genitourinary Symptoms: No Symptoms, No Dysuria Musculoskeletal: No Symptoms, No Back Pain, No Neck Pain Skin: No Symptoms, No Rash Neurological: No Symptoms, No Dizziness, No Focal Weakness, No Sensory Changes Psychological: No Symptoms Endocrine: No Symptoms Hematologic/Lymphatic: No Symptoms Immunological/Allergic: No Symptoms All Other Systems: Reviewed and Negative - Past Medical History Pertinent Past Medical History: Yes Neurological History: No Pertinent History ENT History: No Pertinent History Cardiac History: No Pertinent History Respiratory History: Other Endocrine Medical History: No Pertinent History Musculoskeletal History: Osteoarthritis Psycho-Social History: Bipolar Other Medical History: 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 USES INHALER FOR SEASONAL ALLERGIES.CHRONIC - Past Surgical History Past Surgical History: Yes Female Surgical History: Tubal Ligation Other Surgical History: breast augmentation - Social History Smoking Status: Current every day smoker How long have you smoked: years Exposure to second hand smoke: No Drug Use: marijuana Patient Lives Alone: Yes - Female History Hx Last Menstrual Period: OCC Hx Now: No - Nursing Vital Signs Nursing Vital Signs: Initial Vital Signs Temperature 97.4 F 06/29/22 10:53 Pulse Rate 63 06/29/22 10:53 Respiratory Rate 16 06/29/22 10:53 Blood Pressure 139/95 06/29/22 10:53 O2 Sat by Pulse Oximetry 99 06/29/22 10:53 Pain Scale Pain Intensity 0 - Physical Exam General Appearance: no apparent distress, alert Eye Exam: PERRL/EOMI, eyes nml inspection Ears, Nose, Throat Exam: normal ENT inspection, TMs normal, pharynx normal, moist mucous membranes Neck Exam: normal inspection, non-tender, supple, full range of motion Respiratory Exam: normal breath sounds, lungs clear, airway intact, No respiratory distress Cardiovascular Exam: regular rate/rhythm, normal heart sounds Gastrointestinal/Abdomen Exam: soft, No tenderness, No mass Back Exam: normal inspection, No CVA tenderness, No vertebral tenderness Extremity Exam: normal inspection, normal range of motion Neurologic Exam: alert, oriented x 3, cooperative, normal mood/affect, sensation nml, No motor deficits Skin Exam: normal color, warm, dry SpO2 Interpretation: normal SpO2: 99 O2 Delivery: Room Air - Course Nursing assessment & vital signs reviewed: Yes - Radiology Exams Chest X-ray Interpretation: Teleradiologist Report (Normal heart lungs and bony thorax) Ordered Tests: Active Orders 24 hr Category Date Time Status Bedrest with BRP/BSC ROUTINE Activity 06/29/22 15:11 Active Mobile Battery Technician STAT Care 06/29/22 11:08 Completed Code Status Order ROUTINE Care 06/29/22 15:11 Active EKG-ER Only STAT Care 06/29/22 11:07 Completed IV Care Q6H Care 06/29/22 15:11 Active IV Insertion STAT Care 06/29/22 11:07 Completed Implement Chest Pain Pathway ROUTINE Care 06/29/22 15:[address] in Observation ROUTINE Care 06/29/22 15:11 Active Pulse Oximetry (ED) STAT Care 06/29/22 11:07 Completed Chace Cheek, Apply ROUTINE Care 06/29/22 15:11 Active Telemetry q6h Care 06/29/22 15:11 Active Weight,Daily 0600 Care 06/29/22 15:11 Active CHEST 1 VIEW (PORTABLE) Stat Exams 06/29/22 11:08 Completed CBC W DIFF Stat Lab 06/29/22 11:10 Completed CMP Stat Lab 06/29/22 11:10 Completed D-DIMER QUANTITATIVE Stat Lab 06/29/22 11:10 Completed LIPID PROFILE AM.LAB Lab 06/30/22 04:00 Ordered NT PRO BNPII Stat Lab 06/29/22 11:10 Completed TROPONIN Q4H Lab 06/29/22 11:10 Completed TROPONIN Q4H Lab 06/29/22 13:20 Completed TROPONIN Q4H Lab 06/29/22 18:55 Completed EKG Q8HX2,QAMX3,PRN RT 06/29/22 15:11 Completed Pulse Oximetry Q4H RT 06/29/22 15:11 Active Medication Summary Generic Name Dose Route Start Last Admin Trade Name Freq PRN Reason Stop Dose Admin Acetaminophen 650 mg 06/29/22 15:11 Acetaminophen 325 Mg Tablet PO 07/29/22 15:10 Q4H PRN PRN PAIN AND/OR FEVER Al Hydrox/Mg Hydrox/Simethicone 30 ml 06/29/22 15:11 Mag Hydrox/Al Hydrox/Simeth 30 Ml Udcup PO 07/29/22 15:10 Q4H PRN PRN INDIGESTION Bupropion HCl 150 mg 06/30/22 10:00 Bupropion Hcl 150 Mg Tablet Xl PO 07/30/22 09:59 DAILY JOYCELYN Magnesium Hydroxide 30 - 60 ml 06/29/22 15:11 Magnesium Hydroxide 30 Ml Udcup PO 07/29/22 15:10 QDP PRN CONSTIPATION Ondansetron HCl 4 mg 06/29/22 15:11 Ondansetron Hcl 4 Mg/2 Ml Vial IV 07/29/22 15:10 Q4H PRN PRN NAUSEA/VOMITING Senna/Docusate Sodium 2 udtab 06/29/22 15:11 Senna/Docusate Sodium 1 Udtab Tablet PO 07/29/22 15:10 BID PRN PRN CONSTIPATION Discontinued Medications Generic Name Dose Route Start Last Admin Trade Name Freq PRN Reason Stop Dose Admin Aspirin 325 mg 06/29/22 14:16 06/29/22 14:36 Aspirin 325 Mg Tablet.Ec PO 06/29/22 14:17 325 mg DAILY STA Administration Lab/Rad Data: Laboratory Result Diagrams 06/29/22 11:10 06/29/22 11:10 Laboratory Results 06/29/22 06/29/22 06/29/22 Range/Units 13:20 11:10 11:10 WBC (4.0-10.5) x10^3/uL RBC (4.1-5.4) x10^6/uL Hgb (12.0-16.0) g/dL Hct (35-47) % MCV (78-100) fL MCH (26-32) pg MCHC (32-36) g/dL RDW (11.5-14.0) % Plt Count (150-450) x10^3/uL MPV (7.5-11.0) fL Gran % (36.0-66.0) % Immature Gran % (Auto) (0.00-0.4) % Nucleat RBC Rel Count (0.00-0.1) % Eos # (Auto) (0-0.5) x10^3/uL Immature Gran # (Auto) (0.00-0.03) x10^3u/L Absolute Lymphs (auto) (1.0-4.6) x10^3/uL Absolute Monos (auto) (0.0-1.3) x10^3/uL Absolute Nucleated RBC (0.00-0.01) x10^3u/L Lymphocytes % (24.0-44.0) % Monocytes % (0.0-12.0) % Eosinophils % (0.00-5.0) % Basophils % (0.0-0.4) % Absolute Granulocytes (1.4-6.9) x10^3/uL Basophils # (0-0.4) x10^3/uL D-Dimer 0.34 (0.0-0.50) mg/L Sodium (137-145) mmol/L Potassium (3.5-5.1) mmol/L Chloride (98-107) mmol/L Carbon Dioxide (22-30) mmol/L Anion Gap (5-15) MEQ/L BUN (7-17) mg/dL Creatinine (0.52-1.04) mg/dL Estimated GFR ML/MIN Glucose (74-106) mg/dL Calcium (8.4-10.2) mg/dL Total Bilirubin (0.2-1.3) mg/dL AST (14-36) U/L ALT (0-35) U/L Alkaline Phosphatase (38-126) U/L Troponin I 0.016 < 0.012 (0.000-0.034) ng/mL NT-Pro-B Natriuret Pep (<300) pg/mL Serum Total Protein (6.3-8.2) g/dL Albumin (3.5-5.0) g/dL 06/29/22 06/29/22 Range/Units 11:10 11:10 WBC 9.9 (4.0-10.5) x10^3/uL RBC 4.58 (4.1-5.4) x10^6/uL Hgb 14.0 (12.0-16.0) g/dL Hct 41.3 (35-47) % MCV 90.2 (78-100) fL MCH 30.6 (26-32) pg MCHC 33.9 (32-36) g/dL RDW 13.2 (11.5-14.0) % Plt Count 297 (150-450) x10^3/uL MPV 10.4 (7.5-11.0) fL Gran % 64.2 (36.0-66.0) % Immature Gran % (Auto) 0.2 (0.00-0.4) % Nucleat RBC Rel Count 0.0 (0.00-0.1) % Eos # (Auto) 0.36 (0-0.5) x10^3/uL Immature Gran # (Auto) 0.02 (0.00-0.03) x10^3u/L Absolute Lymphs (auto) 2.54 (1.0-4.6) x10^3/uL Absolute Monos (auto) 0.57 (0.0-1.3) x10^3/uL Absolute Nucleated RBC 0.00 (0.00-0.01) x10^3u/L Lymphocytes % 25.6 (24.0-44.0) % Monocytes % 5.7 (0.0-12.0) % Eosinophils % 3.6 (0.00-5.0) % Basophils % 0.7 (0.0-0.4) % Absolute Granulocytes 6.36 (1.4-6.9) x10^3/uL Basophils # 0.07 (0-0.4) x10^3/uL D-Dimer (0.0-0.50) mg/L Sodium 139 (137-145) mmol/L Potassium 4.5 (3.5-5.1) mmol/L Chloride 106 (98-107) mmol/L Carbon Dioxide 24 (22-30) mmol/L Anion Gap 13.2 (5-15) MEQ/L BUN 10 (7-17) mg/dL Creatinine 0.60 (0.52-1.04) mg/dL Estimated GFR > 60.0 ML/MIN Glucose 88 (74-106) mg/dL Calcium 8.9 (8.4-10.2) mg/dL Total Bilirubin 0.40 (0.2-1.3) mg/dL AST 26 (14-36) U/L ALT 14 (0-35) U/L Alkaline Phosphatase 59 (38-126) U/L Troponin I (0.000-0.034) ng/mL NT-Pro-B Natriuret Pep 123 (<300) pg/mL Serum Total Protein 7.4 (6.3-8.2) g/dL Albumin 4.1 (3.5-5.0) g/dL - Progress Progress: improved Air Movement: good Progress Note: Case discussed with Dr. Palacios excepts admission to observation. 06/29/22 14:28 Patient is a 46-year-old female presents to emergency department for evaluation of heart palpitations. Initial troponin negative. EKG normal sinus rhythm. Pa Initially last then 0.012. Second opponent 0.016. Troponin appears to be trending upward. Will admit for further observation and treatment. Case discussed with Dr. Palacios excepts admission to observation. Chest x-ray unremarkable. CBC within normal limits. CMP normal. D dimer negative. Complexity of problem addressed is moderate, acute complicated with systemic illness. No critical care time Complexity of data reviewed and analyzed is moderate. Test ordered. Test reviewed and analyzed by Dr. Pyle. Risk of complication and or risk morbidity/mortality patient management is high. Patient will require hospitalization for further evaluation and treatment.. Patient agrees to admission at [facility] for further evaluation and treatment. Vital stable Portions of this note were created with voice recognition technology. There may be grammatical, spelling, punctuation or sound alike errors 06/30/22 02:49 Blood Culture(s) Obtained: No Antibiotics given: No Counseled pt/family regarding: lab results, diagnosis, rad results - Departure Departure Disposition: Observation Clinical Impression: Abnormal EKG, ACS (acute coronary syndrome), Heart palpitations Condition: Stable Critical Care Time: No
[2022-06-29] MEDS ORDERED: Ecotrin 325 MG PO STA (14:16)
[2022-06-29] MEDS ORDERED: Zofran 4 MG/2 ML VIAL IV PRN (15:11)
[2022-06-29] MEDS ORDERED: Senokot-S Tablet PO PRN (15:11)
[2022-06-29] MEDS ORDERED: MAALOX ES 30 ML UNIT DOSE PO PRN (15:11)
[2022-06-29] MEDS ORDERED: MILK OF MAGNESIA 30 ML PO PRN (15:11)
[2022-06-29] MEDS ORDERED: TYLENOL 325 MG PO PRN (15:11)
[2022-06-30 05:51] LABS: Risk Ratio 4.8
[2022-06-30 07:44] VITALS: BP 131/70; PULSE 54; O2SAT 98
[2022-06-30] MEDS ORDERED: Wellbutrin XL 150 MG PO SCH (10:00)
--- NOTE | 2022-07-22 07:56 | HOLTER ---
DATE OF PROCEDURE: 06/29/2022 PROCEDURE: Extended Holter monitor report. REASON FOR EXAMINATION: Palpitations. DESCRIPTION OF PROCEDURE: The patient underwent extended Holter monitor for about 8 days and 4 hours starting on 06/30/2022. The patient was in sinus rhythm predominantly with average rate of 74 beats/minute. The maximum rate was 147 beats/minute on 07/07/2022 at 7:24 a.m. and the minimum rate was 41 beats/minute on 07/02/2022 at 7:15 a.m. There were rare premature atrial ectopies, rare atrial couplets and one - 5 beat atrial run noted without evidence of any longer supraventricular tachyarrhythmia. There were occasional premature ventricular ectopies seen without evidence of any ventricular tachyarrhythmia noted. There was no evidence of any long pauses or blocks noted. IMPRESSION: 1) NORMAL SINUS RHYTHM. 2) RARE PAC'S, RARE ATRIAL COUPLETS AND ONE - 5 BEAT ATRIAL RUN. 3) OCCASIONAL PVC'S.
--- NOTE | 2022-07-26 11:35 | PCM.SSS ---
History of Present Illness - Chief Complaint Chief Complaint: heart palpitations, ACS Date: 06/30/22 History of Present Illness: is a 46 year old female.Patient is a 46-year-old female presents to our ED as a referral from her primary care doctor for evaluation of heart palpitations. Patient has been experiencing heart palpitations intermittently. Patient is a smoker. No active palpitation at this time. Patient has some pain in her shoulder which she attributes to arthritis. No associated nausea vomiting or diaphoresis. Symptoms are intermittent. Symptoms are moderate in intensity. No specific worsening or improving factors. Patient voices no other complaints or concerns at this time. Pt. notes symptoms for years off and on but yesterday noted her fit bit told her several times to go to ER for atrial fibrillation. - Review of Systems Constitutional: No Fever, No Chills Eyes: No Symptoms Ears, Nose, & Throat: No Symptoms Respiratory: Short Of Breath, No Cough Cardiac: Palpitations, No Chest Pain, No Edema, No Syncope Abdominal/Gastrointestinal: No Abdominal Pain, No Nausea, No Vomiting, No Diarrhea Genitourinary Symptoms: No Dysuria Musculoskeletal: No Back Pain, No Neck Pain Skin: No Rash Neurological: No Dizziness, No Focal Weakness, No Sensory Changes Psychological: No Symptoms Endocrine: No Symptoms Hematologic/Lymphatic: No Symptoms Immunological/Allergic: No Symptoms Medications & Allergies Home Medications: Home Medication List EPINEPHrine [Epipen 2-Faustino] 0.3 mg IM DIRECTIONS UNKNOWN 1 Days #0.3 ml 12/21/20 [Rx Confirmed 06/29/22] Bupropion HCl Xl 150 mg [Wellbutrin XL 150 MG] 150 mg PO DAILY 06/29/22 [H istory Confirmed 06/29/22] Naproxen 500 mg [Naprosyn 500 MG] 500 mg PO BID 06/29/22 [History C onfirmed 06/29/22] Allergies/Adverse Reactions: Allergies Allergy/AdvReac Type Severity Reaction Status Date / Time No Known Drug Allergies Allergy Verified 12/21/20 23:04 - Past Medical History Past Medical History: Yes Neurological History: No Pertinent History ENT History: No Pertinent History Cardiac History: No Pertinent History Respiratory History: Other Endocrine Medical History: No Pertinent History Musculoskelatal History: Osteoarthritis GI Medical History: GERD History: No Pertinent History Pyscho-Social History: Bipolar Reproductive Disorders: No Pertinent History Comment: 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 USES INHALER FOR SEASONAL ALLERGIES.CHRONIC - Female History Hx Last Menstrual Period: OCC Are you now?: No - Past Surgical History Past Surgical History: Yes Neuro Surgical History: No Pertinent History Cardiac History: No Pertinent History Respiratory Surgery: No Pertinent History GI Surgical History: No Pertinent History Genitourinary Surgical Hx: No Pertinent History Musculskeletal Surgical Hx: No Pertinent History Female Surgical History: Tubal Ligation Other Surgical History: breast augmentation - Social History Smoking Status: Current every day smoker How long have you smoked: years Exposure to second hand smoke: No Alcohol: Occasionally Drug Use: marijuana - Physical Exam General Appearance: no apparent distress, alert Neurologic Exam: alert, oriented x 3, cooperative, normal mood/affect, nml cerebellar function, nml station & gait, sensation nml, No motor deficits Eye Exam: PERRL/EOMI, eyes nml inspection Ears, Nose, Throat Exam: normal ENT inspection, TMs normal, pharynx normal, moist mucous membranes Neck Exam: normal inspection, non-tender, supple, full range of motion Respiratory Exam: normal breath sounds, lungs clear, No respiratory distress Cardiovascular Exam: regular rate/rhythm, normal heart sounds, normal peripheral pulses Gastrointestinal/Abdomen Exam: soft, normal bowel sounds, No tenderness, No mass Back Exam: normal inspection, normal range of motion, No CVA tenderness, No vertebral tenderness Extremity Exam: normal inspection, normal range of motion, pelvis stable Skin Exam: normal color, warm, dry, No rash Lymphatic Exam: No adenopathy Assessment/Plan (1) Heart palpitations Status: Acute Code(s): R00.2 - PALPITATIONS Hospital Summary - Hospital Course Hospital Course: No episodes noted and heart markers remained negative. Pt. discussion willl pl an OP evaluation of cardiac event monitor and treadmill cardiolyte. - Vitals & Intake/Output Vital Signs: Vital Signs Temperature 97.7 F 06/30/22 07:43 Pulse Rate 54 L 06/30/22 07:43 Respiratory Rate 16 06/30/22 07:43 Blood Pressure 131/70 06/30/22 07:43 O2 Sat by Pulse Oximetry 98 06/30/22 07:43 - Lab Result Diagrams: 06/29/22 11:10 06/29/22 11:10 - Procedures and Test Procedures and Tests throughout Hospitalization: Therapy Orders & Screens 06/29/22 15:11 EKG Q8HX2,QAMX3,PRN Comment: 06/29/22 18:47 EKG ROUTINE Comment: Diagnosis: Heart palpitations, ACS 06/30/22 05:00 EKG ROUTINE Comment: Diagnosis: Heart palpitations, ACS 06/30/22 09:00 Bardy 7-14 Day Holter ONCE Comment: Diagnosis: heart palpitations, ACS 07/01/22 05:00 EKG ROUTINE Comment: Diagnosis: Heart palpitations, ACS 07/02/22 05:00 EKG ROUTINE Comment: Diagnosis: Heart palpitations, ACS - Discharge Discharge Date: 06/30/22 Disposition: Home, Self-Care Condition: Stable Prescriptions: Continue EPINEPHrine [Epipen 2-Faustino] 0.3 mg IM DIRECTIONS UNKNOWN 1 Days #0.3 ml Bupropion HCl Xl 150 mg [Wellbutrin XL 150 MG] 150 mg PO DAILY Naproxen 500 mg [Naprosyn 500 MG] 500 mg PO BID Outpatient Orders: Holter Monitor Facility: [facility]. Hosp, Location: RESPIRATORY THERAPY Stress Test: Cardiolyte Facility: [facility] Hosp, Location: RESPIRATORY THERAPY Instructions: Quitting Smoking for Older Adults, Palpitations (DC) Additional Instructions: YOU HAVE BEEN SCHEDULED FOR A STRESS TEST HERE AT [facility] AND YOU HAVE BEEN SET UP WITH A 2 WEEK HOLTER MONITOR. FOLLOW THE INSTRUCTIONS GIVEN TO YOU BY THE RESPIRATORY THERAPIST FOR EACH OF THEM. Follow up with: DAVON FAIRCHILD MD [Primary Care Provider] - 07/08/22 11:00 am
== END 2022-06-30 09:45 | disposition home or self-care (01) ==
LOC: ED 10:30 → MED SURG 15:10
PROVIDERS: ADMIT Family Medicine; ATTEND Family Medicine
DX: R00.2 Palpitations (principal); R94.31 Abnormal electrocardiogram [ECG] [EKG]; Z79.899 Other long term (current) drug therapy; Z72.0 Tobacco use; Z20.828 Contact with and (suspected) exposure to other viral communicable diseases
CPT/HCPCS: 36000; 36415; 71045; 80053; 80061; 83721; 83880; 84484; 85025; 85379; 93005; 93041; 93246; 93268; 94760; 99285; G0378; A9270-GY

== ENCOUNTER 2022-10-24 12:47 | Emergency (ER) | payer MEDICAID, OTHER ==
[2022-10-24 13:00] VITALS: RESP 20; O2SAT 98
--- NOTE | 2022-10-24 14:43 | ERPHSYRPT ---
- History of Present Illness Time Seen by Provider: 10/24/22 14:43 Source: patient Exam Limitations: no limitations Patient Subjective Stated Complaint: PT states "I woke up the other day and my right foot was hurting really bad, I put my hands around my foot and it popped and felt better. IT did it again later the next day and it popped again when I put pressure on it. It only feels good with pressure like wearing tennis shoes." Triage Nursing Assessment: Pt presented alert and oriented X 3, skin wpd. Pt ambulates with an upright steady gait, able to speak in clear full sentences. Pt right lateral foot has no swelling, no redness or tenderness noted. Physician History: pt felt pop in right foot and has pain on walking. no fall or other injuries noted. Discussed risks/benefit of x-ray and pt wishes to proceed. THis is ordered and result discussed with pt. ADvised pt to have referral to Record Producer and she wishes this also so we are providing the paperwork. Method of Injury: unknown Occurred: days ago Quality: constant, sharpness Severity of Pain-Max: moderate Severity of Pain-Current: moderate Lower Extremities Pain: foot: right Modifying Factors: Improves With: immobilization, movement Associated Symptoms: popping sensation Allergies/Adverse Reactions: No Known Drug Allergies Allergy (Verified 12/21/20 23:04) Home Medications: Cariprazine HCl [Vraylar] 3 mg PO DAILY 10/24/22 [History] Hx Tetanus, Diphtheria Vaccination/Date Given: No Hx Influenza Vaccination/Date Given: No Hx Pneumococcal Vaccination/Date Given: No Immunizations Up to Date: No Travel Risk - International Travel Have you traveled outside of the country in past 3 weeks: No - Coronavirus Screening Are you exhibiting any of the following symptoms?: No Close contact with a COVID-19 positive Pt in past 14-21 Days: No - Vaccine Status Have you recieved a Covid-19 vaccination: Yes Nanny/Household Manager: Moderna - Vaccination Dates Date of 2cond Vaccination (if applicable): June 2020 - Review of Systems Constitutional: No Fever, No Chills Eyes: No Symptoms Ears, Nose, & Throat: No Symptoms Respiratory: No Cough, No Dyspnea Cardiac: No Chest Pain, No Edema, No Syncope Abdominal/Gastrointestinal: No Abdominal Pain, No Nausea, No Vomiting, No Diarrhea Genitourinary Symptoms: No Dysuria Musculoskeletal: Joint Pain, No Back Pain, No Neck Pain Skin: No Rash Neurological: No Dizziness, No Focal Weakness, No Sensory Changes Psychological: No Symptoms Endocrine: No Symptoms Hematologic/Lymphatic: No Symptoms Immunological/Allergic: No Symptoms All Other Systems: Reviewed and Negative - Past Medical History Pertinent Past Medical History: Yes Neurological History: No Pertinent History ENT History: No Pertinent History Cardiac History: No Pertinent History Respiratory History: Other Endocrine Medical History: No Pertinent History Musculoskeletal History: Osteoarthritis GI Medical History: GERD History: No Pertinent History Psycho-Social History: Bipolar Female Reproductive Disorders: No Pertinent History Other Medical History: 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 USES INHALER FOR SEASONAL ALLERGIES.CHRONIC - Past Surgical History Past Surgical History: Yes Neuro Surgical History: No Pertinent History Cardiac: No Pertinent History Respiratory: No Pertinent History Gastrointestinal: No Pertinent History Genitourinary: No Pertinent History Musculoskeletal: No Pertinent History Female Surgical History: Tubal Ligation Other Surgical History: breast augmentation - Social History Smoking Status: Current every day smoker How long have you smoked: years Exposure to second hand smoke: Yes Drug Use: marijuana Patient Lives Alone: Yes - Female History Hx Last Menstrual Period: 1 year menopause Hx Now: No - Nursing Vital Signs Nursing Vital Signs: Initial Vital Signs Temperature 98.9 F 10/24/22 12:54 Pulse Rate 62 10/24/22 12:54 Respiratory Rate 20 10/24/22 12:54 Blood Pressure 117/83 10/24/22 12:54 O2 Sat by Pulse Oximetry 98 10/24/22 12:54 Pain Scale Pain Intensity 0 - Physical Exam General Appearance: no apparent distress, alert Eyes, Ears, Nose, Throat Exam: moist mucous membranes Neck Exam: non-tender, supple Cardiovascular/Respiratory Exam: chest non-tender, normal breath sounds, regular rate/rhythm, no respiratory distress Gastrointestinal/Abdominal Exam: non-tender, guarding Back Exam: normal inspection, No vertebral tenderness Hips Exam: bilateral: non-tender, normal inspection, normal range of motion, no evidence of injury Legs Exam: bilateral leg: non-tender, normal inspection, normal range of motion, no evidence of injury Knees Exam: bilateral knee: non-tender, normal inspection, normal range of motion, no evidence of injury Ankle Exam: bilateral ankle: non-tender, normal inspection, normal range of motion, no evidence of injury Foot Exam: right foot: bone tenderness, pain, soft tissue tenderness, swelling, left foot: non-tender, normal inspection, normal range of motion, no evidence of injury DTR - Lower Extremities Exam: knee (R): 2+, knee (L): 2+, ankle (R): 2+, ankle (L): 2+ Neuro/Tendon Exam: normal sensation, normal motor functions Mental Status Exam: alert, oriented x 3, cooperative Skin Exam: normal color, warm, dry SpO2 Interpretation: normal SpO2: 98 O2 Delivery: Room Air Procedures - Splinting Time of Procedure: 15:13 Location of Splint: Right, Foot Type of Splint: Walking Boot/Shoe Splint Applied By: ED Nurse Pre-Proc Neuro Vasc Exam: normal Post-Proc Neuro Vasc Exam: neurovascular intact, good alignment, unchanged from pre-exam - Course Nursing assessment & vital signs reviewed: Yes - Radiology Exams Right Foot X-ray Interpretation: Reviewed by me, Other (no obvious fx - referring to podiatry) Ordered Tests: Active Orders 24 hr Category Date Time Status FOOT (MINIMUM 3 VIEWS) Stat Exams 10/24/22 14:42 Taken - Progress Progress: improved, re-examined Counseled pt/family regarding: diagnosis, need for follow-up, rad results Medical Desision Making - Diagnostic Testing Diagnostic test were ordered, analyzed, and reviewed by me: Yes Radiological Interpretation: Reviewed by me - Risk of complications Low Risk: Low risk of morbidity from additional dx testing or treatment - Departure Departure Disposition: Home Clinical Impression: right foot ligament injury/sprain Condition: Good Critical Care Time: No Referrals: DAVON FAIRCHILD MD [Primary Care Provider] - Follow up/PCP as directed Instructions: Foot Fracture (DC), Foot Sprain (DC) Additional Instructions: there still could be an undetected fracture , but likely is a ligament injury so we are referring you to the quality systems specialist Dr. Wise for Tuesday evaluation 8- 10 am. Return meantime if any further concerns. final x-ray report from radiology is available tomorrow.
[2022-10-24 15:08] VITALS: BP 113/79; PULSE 61; TEMP 97.2
--- NOTE | 2022-10-24 20:03 | XRAY ---
Indication: Pain. Comparison: None 3 nonweightbearing views right foot demonstrates normal bones, articulations, and soft tissues.
== END 2022-10-24 15:30 | disposition home or self-care (01) ==
LOC: ED 12:47
DX: S93.601A Unspecified sprain of right foot, initial encounter (principal); Z79.899 Other long term (current) drug therapy; Z72.0 Tobacco use
CPT/HCPCS: 73630; 99283; L4386

== ENCOUNTER 2022-12-24 08:29 | Emergency (ER) | payer MEDICAID, OTHER ==
[2022-12-24 09:07] LABS: Appearance Clear (Clear); Bacteria None Seen /HPF (None Seen); Bilirubin Negative (Negative); Blood Negative (Negative); Epithelial Cells None Seen /HPF (None Seen); Glucose, Urine Negative (Negative); Hyaline Casts NONE SEEN /LPF (0-2); Ketones Negative (Negative); Leukocyte Esterase Negative (Negative); Nitrite Negative (Negative); Ph 6.5 (4.6-8.0); Protein,Urine Dip Negative (Negative); RBC 0-2 /HPF (0-5); Specific Gravity 1.015 (1.005-1.030); Urobilinogen 0.2 mg/dL (0.2); WBC 0-2 /HPF (0-5)
[2022-12-24 09:13] LABS: ADD URINE CULTURE? NO (NO)
[2022-12-24 09:16] VITALS: TEMP 97.6
[2022-12-24] MEDS ORDERED: TORAdol 30 mg Injection IM ONE (09:28)
[2022-12-24] MEDS ORDERED: TORAdol 30 mg Injection ONE (09:35)
--- NOTE | 2022-12-24 09:39 | ERPHSYRPT ---
- History of Present Illness Source: patient Exam Limitations: no limitations Patient Subjective Stated Complaint: Pt reports that approx two days ago she started having spasms in her back. This morning she started having sharp pains under left shoulder blade that she rates a 10/10. Triage Nursing Assessment: Pt alert and oriented x3. Respirations easy/nonlabored. Skin w/p/d. Ambulated to ED cot per self without difficulty. No obvious deformities/contusions/no tenderness with palpation. Physician History: Patient is a 47-year-old white female who complains of left subscapular pain x3 days. Pain is a 10 on scale, sharp, and worse with deep breaths. Patient had a cough for approximately 2 weeks and coryza which is improving. She denies any chest pain, shortness of breath, or fever. Nausea, vomiting, dyspnea, and diaphoresis are all denied. Patient smokes less than 1 pack a day but denies CAD, AR, diabetes, hyperlipidemia, and hypertension. Injury is also denied. Patient states that she has had similar pain in the past with muscle spasm. Timing/Duration: day(s) (3 days) Method of Injury: other (No injury) Quality: sharp (Pain is sharp and stabbing) Severity of Pain-Max: severe Severity of Pain-Current: severe Modifying Factors: Improves With: other (Worse with deep breaths) Associated Symptoms: denies symptoms, muscle spasms Allergies/Adverse Reactions: No Known Drug Allergies Allergy (Verified 12/24/22 09:09) Hx Tetanus, Diphtheria Vaccination/Date Given: No Hx Influenza Vaccination/Date Given: No Hx Pneumococcal Vaccination/Date Given: No Travel Risk - International Travel Have you traveled outside of the country in past 3 weeks: No - Coronavirus Screening Are you exhibiting any of the following symptoms?: No Close contact with a COVID-19 positive Pt in past 14-21 Days: No - Vaccine Status Have you recieved a Covid-19 vaccination: Yes Tent Worker: Moderna - Vaccination Dates Date of 2cond Vaccination (if applicable): June 2020 - Review of Systems Constitutional: No Symptoms Eyes: No Symptoms Ears, Nose, & Throat: No Symptoms Respiratory: No Symptoms Cardiac: No Symptoms Abdominal/Gastrointestinal: No Symptoms Genitourinary Symptoms: No Symptoms Musculoskeletal: No Symptoms, Back Pain Skin: Skin Lesions Neurological: No Symptoms Psychological: No Symptoms Endocrine: No Symptoms Hematologic/Lymphatic: No Symptoms Immunological/Allergic: No Symptoms - Past Medical History Pertinent Past Medical History: Yes Neurological History: No Pertinent History ENT History: No Pertinent History Cardiac History: No Pertinent History Respiratory History: Other Endocrine Medical History: No Pertinent History Musculoskeletal History: Osteoarthritis GI Medical History: GERD History: No Pertinent History Psycho-Social History: Depression Female Reproductive Disorders: No Pertinent History Other Medical History: 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 USES INHALER FOR SEASONAL ALLERGIES.CHRONIC - Past Surgical History Past Surgical History: Yes Neuro Surgical History: No Pertinent History Cardiac: No Pertinent History Respiratory: No Pertinent History Gastrointestinal: No Pertinent History Genitourinary: No Pertinent History Musculoskeletal: No Pertinent History Female Surgical History: Tubal Ligation Other Surgical History: breast augmentation - Social History Smoking Status: Current every day smoker How long have you smoked: years Exposure to second hand smoke: Yes Drug Use: marijuana Patient Lives Alone: Yes - Female History Hx Last Menstrual Period: last year, going through menopause Hx Now: No - Nursing Vital Signs Nursing Vital Signs: Initial Vital Signs Temperature 97.6 F 12/24/22 09:04 Pulse Rate 62 12/24/22 09:04 Respiratory Rate 16 12/24/22 09:04 Blood Pressure 146/89 12/24/22 09:04 O2 Sat by Pulse Oximetry 96 12/24/22 09:04 Pain Scale Pain Intensity [] 10 Pain Intensity 10 Mildly hypertensive - Physical Exam General Appearance: no apparent distress (In moderate pain.) Eye Exam: PERRL/EOMI, eyes nml inspection Ears, Nose, Throat Exam: normal ENT inspection, TMs normal, pharynx normal, moist mucous membranes Neck Exam: normal inspection, non-tender, supple, full range of motion, No meningismus, No mass, No Brudzinski, No Kernig's, No carotid bruit Respiratory Exam: normal breath sounds, lungs clear, airway intact, No chest tenderness, No respiratory distress Cardiovascular Exam: regular rate/rhythm, normal heart sounds, normal peripheral pulses, capillary refill <2 sec, No murmur Gastrointestinal Exam: soft, normal bowel sounds, No tenderness Back Exam: normal inspection, normal range of motion, No CVA tenderness, No vertebral tenderness Extremity Exam: normal inspection, normal range of motion, pelvis stable Peripheral Pulses: carotid (R): 2+, carotid (L): 2+ Neurologic Exam: alert, oriented x 3, cooperative, contract assistant II-XII nml as tested, normal mood/affect, nml station & gait, sensation nml Skin Exam: normal color, warm, dry Lymphatic Exam: No adenopathy SpO2 Interpretation: normal SpO2: 96 O2 Delivery: Room Air - Course Nursing assessment & vital signs reviewed: Yes - Radiology Exams Chest X-ray Interpretation: Reviewed by me (Chest x-ray negative productively) - CT Exams Chest CT Interpretation: Discussed w/radiologist (CT scan of the chest without contrast negative for pneumonia or acute osseous injury.) Ordered Tests: Active Orders 24 hr Category Date Time Status EKG-ER Only STAT Care 12/24/22 09:26 Completed CHEST 1 VIEW (PORTABLE) Stat Exams 12/24/22 09:27 Completed CHEST WITHOUT CONTRAST [CT] Stat Exams 12/24/22 10:46 Completed CBC W DIFF Stat Lab 12/24/22 09:26 Completed CMP Stat Lab 12/24/22 09:45 Completed D-DIMER QUANTITATIVE Stat Lab 12/24/22 09:45 Completed NT PRO BNPII Stat Lab 12/24/22 09:45 Completed PROTIME WITH INR Stat Lab 12/24/22 09:45 Completed PTT Stat Lab 12/24/22 09:45 Completed TROPONIN Q4H Lab 12/24/22 09:45 Completed TROPONIN Q4H Lab 12/24/22 13:30 Ordered TROPONIN Q4H Lab 12/24/22 17:30 Ordered UA W/RFX UR CULTURE Stat Lab 12/24/22 08:59 Completed Medication Summary Discontinued Medications Generic Name Dose Route Start Last Admin Trade Name Wardq PRN Reason Stop Dose Admin Ketorolac Tromethamine 30 mg 12/24/22 09:28 12/24/22 09:43 Ketorolac Tromethamine 30 Mg/Ml Inj IM 12/24/22 09:29 30 mg STAT ONE Administration Ketorolac Tromethamine Confirm 12/24/22 09:35 Ketorolac Tromethamine 30 Mg/Ml Inj Administered 12/24/22 09:36 Dose 30 mg .ROUTE .STK-MED ONE Orphenadrine Citrate 60 mg 12/24/22 10:50 12/24/22 11:20 Orphenadrine Citrate 60 Mg/2 Ml Vial IM 12/24/22 10:51 60 mg STAT ONE Administration Orphenadrine Citrate Confirm 12/24/22 11:19 Orphenadrine Citrate 60 Mg/2 Ml Vial Administered 12/24/22 11:20 Dose 60 mg .ROUTE .STK-MED ONE Lab/Rad Data: Laboratory Result Diagrams 12/24/22 09:26 12/24/22 09:45 Laboratory Results 12/24/22 12/24/22 12/24/22 Range/Units 09:45 09:45 09:45 WBC (4.0-10.5) x10^3/uL RBC (4.1-5.4) x10^6/uL Hgb (12.0-16.0) g/dL Hct (35-47) % MCV (78-100) fL MCH (26-32) pg MCHC (32-36) g/dL RDW (11.5-14.0) % Plt Count (150-450) x10^3/uL MPV (7.5-11.0) fL Gran % (36.0-66.0) % Immature Gran % (Auto) (0.00-0.4) % Nucleat RBC Rel Count (0.00-0.1) % Eos # (Auto) (0-0.5) x10^3/uL Immature Gran # (Auto) (0.00-0.03) x10^3u/L Absolute Lymphs (auto) (1.0-4.6) x10^3/uL Absolute Monos (auto) (0.0-1.3) x10^3/uL Absolute Nucleated RBC (0.00-0.01) x10^3u/L Lymphocytes % (24.0-44.0) % Monocytes % (0.0-12.0) % Eosinophils % (0.00-5.0) % Basophils % (0.0-0.4) % Absolute Granulocytes (1.4-6.9) x10^3/uL Basophils # (0-0.4) x10^3/uL PT 10.1 (9.4-12.5) SECONDS INR 0.92 (0.8-3.0) APTT 27.1 (25.1-36.5) SECONDS D-Dimer 0.31 (0.0-0.50) mg/L Sodium (137-145) mmol/L Potassium (3.5-5.1) mmol/L Chloride (98-107) mmol/L Carbon Dioxide (22-30) mmol/L Anion Gap (5-15) MEQ/L BUN (7-17) mg/dL Creatinine (0.52-1.04) mg/dL Estimated GFR ML/MIN Glucose (74-106) mg/dL Calcium (8.4-10.2) mg/dL Total Bilirubin (0.2-1.3) mg/dL AST (14-36) U/L ALT (0-35) U/L Alkaline Phosphatase (38-126) U/L Troponin I < 0.012 (0.000-0.034) ng/mL NT-Pro-B Natriuret Pep 189 (<300) pg/mL Serum Total Protein (6.3-8.2) g/dL Albumin (3.5-5.0) g/dL Urine Color (Yellow) Urine Appearance (Clear) Urine pH (4.6-8.0) Ur Specific [place] (1.005-1.030) Urine Protein (Negative) Urine Glucose (UA) (Negative) mg/dL Urine Ketones (Negative) Urine Blood (Negative) Urine Nitrite (Negative) Urine Bilirubin (Negative) Urine Urobilinogen (0.2) mg/dL Ur Leukocyte Esterase (Negative) U Hyaline Cast (Auto) (0-2) /LPF Urine Microscopic RBC (0-5) /HPF Urine Microscopic WBC (0-5) /HPF Ur Epithelial Cells (None Seen) /HPF Urine Bacteria (None Seen) /HPF Urine Culture Reflexed (NO) Influenza Type A Ag NEGATIVE (NEGATIVE) Influenza Type B Ag NEGATIVE (NEGATIVE) RSV (PCR) NEGATIVE (NEGATIVE) SARS-CoV-2 (PCR) NEGATIVE (NEGATIVE) 12/24/22 12/24/22 12/24/22 Range/Units 09:45 09:26 08:59 WBC 15.0 H (4.0-10.5) x10^3/uL RBC 5.18 (4.1-5.4) x10^6/uL Hgb 15.6 (12.0-16.0) g/dL Hct 47.3 H (35-47) % MCV 91.3 (78-100) fL MCH 30.1 (26-32) pg MCHC 33.0 (32-36) g/dL RDW 12.9 (11.5-14.0) % Plt Count 337 (150-450) x10^3/uL MPV 10.3 (7.5-11.0) fL Gran % 75.6 H (36.0-66.0) % Immature Gran % (Auto) 0.3 (0.00-0.4) % Nucleat RBC Rel Count 0.0 (0.00-0.1) % Eos # (Auto) 0.32 (0-0.5) x10^3/uL Immature Gran # (Auto) 0.04 H (0.00-0.03) x10^3u/L Absolute Lymphs (auto) 2.61 (1.0-4.6) x10^3/uL Absolute Monos (auto) 0.62 (0.0-1.3) x10^3/uL Absolute Nucleated RBC 0.00 (0.00-0.01) x10^3u/L Lymphocytes % 17.4 L (24.0-44.0) % Monocytes % 4.1 (0.0-12.0) % Eosinophils % 2.1 (0.00-5.0) % Basophils % 0.5 (0.0-0.4) % Absolute Granulocytes 11.34 H (1.4-6.9) x10^3/uL Basophils # 0.08 (0-0.4) x10^3/uL PT (9.4-12.5) SECONDS INR (0.8-3.0) APTT (25.1-36.5) SECONDS D-Dimer (0.0-0.50) mg/L Sodium 139 (137-145) mmol/L Potassium 4.7 (3.5-5.1) mmol/L Chloride 104 (98-107) mmol/L Carbon Dioxide 25 (22-30) mmol/L Anion Gap 14.5 (5-15) MEQ/L BUN 10 (7-17) mg/dL Creatinine 0.56 (0.52-1.04) mg/dL Estimated GFR 113.2 ML/MIN Glucose 97 (74-106) mg/dL Calcium 10.2 (8.4-10.2) mg/dL Total Bilirubin 0.50 (0.2-1.3) mg/dL AST 19 (14-36) U/L ALT 14 (0-35) U/L Alkaline Phosphatase 93 (38-126) U/L Troponin I (0.000-0.034) ng/mL NT-Pro-B Natriuret Pep (<300) pg/mL Serum Total Protein 8.5 H (6.3-8.2) g/dL Albumin 4.7 (3.5-5.0) g/dL Urine Color Yellow (Yellow) Urine Appearance Clear (Clear) Urine pH 6.5 (4.6-8.0) Ur Specific [place] 1.015 (1.005-1.030) Urine Protein Negative (Negative) Urine Glucose (UA) Negative (Negative) mg/dL Urine Ketones Negative (Negative) Urine Blood Negative (Negative) Urine Nitrite Negative (Negative) Urine Bilirubin Negative (Negative) Urine Urobilinogen 0.2 (0.2) mg/dL Ur Leukocyte Esterase Negative (Negative) U Hyaline Cast (Auto) NONE SEEN (0-2) /LPF Urine Microscopic RBC 0-2 (0-5) /HPF Urine Microscopic WBC 0-2 (0-5) /HPF Ur Epithelial Cells None Seen (None Seen) /HPF Urine Bacteria None Seen (None Seen) /HPF Urine Culture Reflexed NO (NO) Influenza Type A Ag (NEGATIVE) Influenza Type B Ag (NEGATIVE) RSV (PCR) (NEGATIVE) SARS-CoV-2 (PCR) (NEGATIVE) - Progress Progress Note: Nursing note and vital signs reviewed. No food or housing insecurity is noted. 30 mg IM Toradol with improvement in pain. All lab work reviewed and shared with the patient. Chest x-ray result reviewed and shared with patient. CTA chest result reviewed and shared with patient. Patient with a negative troponin and also a normal limit D-dimer at this time, so pain most likely musculoskeletal in nature. Patient prescribed Norflex 60 mg p.o. twice daily and etodolac 400 mg p.o. twice daily for continued pain. Patient also advised to follow-up with her family MD. Patient advised to return to ER for increasing pain, shortness of breath, or temperature of 100.5 Counseled pt/family regarding: lab results, diagnosis, need for follow-up, rad results Medical Desision Making - Diagnostic Testing Diagnostic test were ordered, analyzed, and reviewed by me: Yes Radiological Interpretation: Interpreted by me - Risk of complications The pt has a mod risk of morbidity or mortality based on: Need for prescription drug management - Departure Departure Disposition: Home Clinical Impression: Thoracic back pain Condition: Stable Critical Care Time: No Referrals: DAVON FAIRCHILD MD [Primary Care Provider] - Follow up/PCP as directed Instructions: Upper Back Pain (DC) Additional Instructions: Rest/heat/massage Norflex and etodolac as needed for pain. Follow-up with your family MD for continued pain. Return to ER for increasing pain, temperature greater 100.5, or increasing shortness of breath. Prescriptions: Etodolac 400 mg [Lodine 400 mg] 400 mg PO BID PRN PRN #12 tablet PRN Reason: Pain Orphenadrine Citrate 100 mg [Norflex 100 MG Tablet] 100 mg PO BID PRN PRN #12 tab PRN Reason: Pain
[2022-12-24 09:49] LABS: Absolute Neutrophil Ct (ANC) 11.34 x10^3/uL (1.4-6.9); BASOPHIL % 0.5 % (0.0-0.4); Basophil (Absolute #) 0.08 x10^3/uL (0-0.4); Eosinophil % 2.1 % (0.00-5.0); Eosinophil (Absolute #) 0.32 x10^3/uL (0-0.5); Hematocrit 47.3 % (35-47); Hemoglobin 15.6 g/dL (12.0-16.0); IMMATURE GRAN # 0.04 x10^3u/L (0.00-0.03); IMMATURE GRAN % 0.3 % (0.00-0.4); Lymphocyte (Absolute #) 2.61 x10^3/uL (1.0-4.6); Lymphocytes % 17.4 % (24.0-44.0); Mean Cell Volume 91.3 fL (78-100); Mean Corpuscular Hemoglobin 30.1 pg (26-32); Mean Platelet Volume 10.3 fL (7.5-11.0); Monocyte (Absolute #) 0.62 x10^3/uL (0.0-1.3); Monocytes % 4.1 % (0.0-12.0); Neutrophil % 75.6 % (36.0-66.0); Platelet Count 337 x10^3/uL (150-450); Red Blood Count 5.18 x10^6/uL (4.1-5.4); Red Cell Distribution Width 12.9 % (11.5-14.0)
--- NOTE | 2022-12-24 09:50 | XRAY ---
Indication: Left chest pain and cough. Comparison: June 29, 2022 Portable chest again demonstrates normal heart and lungs. Bony thorax intact. No new/acute findings.
[2022-12-24 10:03] LABS: ALBUMIN 4.7 g/dL (3.5-5.0); ANION GAP 14.5 MEQ/L (5-15); BILIRUBIN,TOTAL 0.5 mg/dL (0.2-1.3); Calcium 10.2 mg/dL (8.4-10.2); Creatinine 1 0.56 mg/dL (0.52-1.04); EST GLOMERULAR FILTRATION RATE 113.2 ML/MIN; Potassium 4.7 mmol/L (3.5-5.1); Total Protein 8.5 g/dL (6.3-8.2)
[2022-12-24 10:05] LABS: D-DIMER QUANTITATIVE 0.31 mg/L (0.0-0.50); INR 0.92 (0.8-3.0); PROTIME 10.1 SECONDS (9.4-12.5); PTT 27.1 SECONDS (25.1-36.5)
[2022-12-24 10:11] VITALS: RESP 17
[2022-12-24 10:15] LABS: TROPONIN < 0.012 ng/mL (0.000-0.034)
[2022-12-24 10:18] LABS: NT PRO BNPII 189 pg/mL (<300)
[2022-12-24 10:35] LABS: INFLUENZA A NEGATIVE (NEGATIVE); INFLUENZA B NEGATIVE (NEGATIVE); RESPIRATORY SYNCTIAL VIRUS NEGATIVE (NEGATIVE); SARS-CoV-2 Xpert Express NEGATIVE (NEGATIVE)
[2022-12-24] MEDS ORDERED: Norflex 60 MG/2 ML IM ONE (10:50)
--- NOTE | 2022-12-24 11:14 | XRAY ---
Indication: Thoracic pain. Leukocytosis. Cough. Multiple contiguous axial images obtained through the chest without contrast. Comparison: None Lungs inflated and clear. Heart not enlarged. Aorta is normal in course and caliber. No pathologic mediastinal lymphadenopathy. Bony thorax intact. Incidental intact bilateral breast implants. Limited upper abdomen including adrenal glands are unremarkable. Impression: Normal CT chest without contrast exam.
[2022-12-24] MEDS ORDERED: Norflex 60 MG/2 ML ONE (11:19)
[2022-12-24 11:33] VITALS: BP 142/83; PULSE 60
[2022-12-24 12:10] VITALS: O2SAT 96
== END 2022-12-24 11:39 | disposition home or self-care (01) ==
LOC: ED 08:29
DX: M54.6 Pain in thoracic spine (principal); R05.1 Acute cough; Z72.0 Tobacco use
CPT/HCPCS: 0241U; 36415; 71045; 71250; 80053; 81001; 83880; 84484; 85025; 85379; 85610; 85730; 93005; 96372; 99284; J1885; J2360

== ENCOUNTER 2023-10-27 09:53 | Emergency (ER) | payer OTHER ==
[2023-10-27 10:12] VITALS: TEMP 97.9; O2SAT 100
[2023-10-27] MEDS ORDERED: TORAdol 30 mg Injection ONE (10:46)
[2023-10-27] MEDS ORDERED: Norflex 60 MG/2 ML ONE (10:46)
[2023-10-27] MEDS: TORAdol 30 mg Injection IM ONE (10:48)
--- NOTE | 2023-10-27 10:48 | XRAY ---
Indication: Back pain. Comparison: December 24, 2022 PA/lateral chest again hyperinflated and clear. Heart not enlarged. Bony thorax intact again with osteopenia and minimal dextroscoliosis. Impression: Nonacute hyperinflated chest with chronic bony findings.
[2023-10-27] MEDS: Norflex 60 MG/2 ML IM ONE (10:49)
--- NOTE | 2023-10-27 11:48 | ERPHSYRPT ---
- History of Present Illness Time Seen by Provider: 10/27/23 10:08 Source: patient Exam Limitations: no limitations Patient Subjective Stated Complaint: Upper back pain Triage Nursing Assessment: Patient ambulated back to ED and transferred self to bed. Patient A+O X3. Patient's skin pink, warm and dry. Patient complains of upper back pain from shoulder blade to shoulder blade worse on left side 11/23. Patient states she was at the gym with a friend on Tuesday and started having pain yesterday morning. Physician History: 48 years old female with history of off and on upper back spasms in the shoulder blade area presented in the ER with pain since yesterday where it gets worse moving in a certain position and even with lying down, better with sitting up. Denies any midline back pain. Patient pain is more underneath left shoulder blade. Patient reports having similar symptoms multiple times in the past. Patient reports she was in the gym day before this pain started and got worse yesterday after she took shower. Patient reports extreme worsening of pain with lifting anything even her cell phone. She had old muscle relaxant which she used but did not see much improvement. Denies any chest pain otherwise, no difficulty breathing. Denies any fall or trauma. Allergies/Adverse Reactions: No Known Drug Allergies Allergy (Verified 10/27/23 10:06) Hx Tetanus, Diphtheria Vaccination/Date Given: No Hx Influenza Vaccination/Date Given: No Hx Pneumococcal Vaccination/Date Given: No Immunizations Up to Date: Yes Travel Risk - International Travel Have you traveled outside of the country in past 3 weeks: No - Emerging Infectious Disease Are you exhibiting symptoms associated with any current EIDs: No - Review of Systems Constitutional: No Symptoms Ears, Nose, & Throat: No Symptoms Respiratory: No Symptoms Cardiac: No Symptoms Abdominal/Gastrointestinal: No Symptoms Genitourinary Symptoms: No Symptoms Musculoskeletal: Back Pain, Myalgias Skin: No Symptoms Neurological: No Symptoms Endocrine: No Symptoms Hematologic/Lymphatic: No Symptoms - Past Medical History Pertinent Past Medical History: Yes Neurological History: No Pertinent History ENT History: No Pertinent History Cardiac History: No Pertinent History Respiratory History: No Pertinent History Endocrine Medical History: No Pertinent History Musculoskeletal History: Arthritis, Degenerative Disk Disease GI Medical History: GERD History: No Pertinent History Psycho-Social History: Depression Female Reproductive Disorders: No Pertinent History Other Medical History: PANIC ATTACKS (HANDS AND FEET GO NUMB), CARPAL TUNNEL BILATERAL, LOW HEART RATE (WHICH PCP FEELS IS DUE TO PANIC ATTACKS CARDIAC CLEARED PER PT), BIPOLAR. BREAST AUGMENTATION WITH IMPLANT. - Past Surgical History Past Surgical History: Yes Neuro Surgical History: No Pertinent History Cardiac: No Pertinent History Respiratory: No Pertinent History Gastrointestinal: No Pertinent History Genitourinary: No Pertinent History Musculoskeletal: No Pertinent History Female Surgical History: Tubal Ligation Other Surgical History: breast augmentation - Female History Hx Last Menstrual Period: menopausal Hx Now: No - Social History Smoking Status: Current every day smoker How long have you smoked: years Exposure to second hand smoke: No Drug Use: marijuana Patient Lives Alone: Yes - Social Determinants of Health Will the patient participate in the screening: Yes Do you worry about a steady place to live?: No Do you have any problems with any of the following?: No known problems In the past 12 months,have you had to go without utilities?: No Transportation Issues: No Has anyone in your support network made you feel unsafe?: No Have you or anyone in your house had to go without enough: No - Nursing Vital Signs Nursing Vital Signs: Initial Vital Signs Blood Pressure 145/107 10/27/23 10:06 Pain Scale Pain Intensity 7 - Physical Exam General Appearance: no apparent distress, alert, anxiety Eye Exam: PERRL/EOMI Ears, Nose, Throat Exam: normal ENT inspection Neck Exam: normal inspection, non-tender, supple, full range of motion Respiratory Exam: normal breath sounds, chest tenderness (Shoulder blade area tenderness across, reproducible with movements of the shoulder, palpation. No midline tenderness. No swelling erythema or rash.), lungs clear Cardiovascular Exam: regular rate/rhythm, normal heart sounds Gastrointestinal Exam: soft, normal bowel sounds, No tenderness Back Exam: normal inspection, decreased range of motion, muscle spasm, No vertebral tenderness Extremity Exam: normal inspection, normal range of motion Neurologic Exam: alert, oriented x 3, cooperative Skin Exam: normal color SpO2 Interpretation: normal SpO2: 100 O2 Delivery: Room Air Ordered Tests: Active Orders 24 hr Category Date Time Status CHEST 2 VIEWS (PA AND LAT) Stat Exams 10/27/23 10:18 Completed Medication Summary Discontinued Medications Generic Name Dose Route Start Last Admin Trade Name Freq PRN Reason Stop Dose Admin Ketorolac Tromethamine 30 mg 10/27/23 10:18 10/27/23 10:48 Ketorolac Tromethamine 30 Mg/Ml Inj IM 10/27/23 10:19 30 mg STAT ONE Administration Ketorolac Tromethamine Confirm 10/27/23 10:46 Ketorolac Tromethamine 30 Mg/Ml Inj Administered 10/27/23 10:47 Dose 30 mg .ROUTE .STK-MED ONE Orphenadrine Citrate 60 mg 10/27/23 10:18 10/27/23 10:49 Orphenadrine Citrate 60 Mg/2 Ml Vial IM 10/27/23 10:19 60 mg STAT ONE Administration Orphenadrine Citrate Confirm 10/27/23 10:46 Orphenadrine Citrate 60 Mg/2 Ml Vial Administered 10/27/23 10:47 Dose 60 mg .ROUTE .STK-MED ONE - Progress Progress: improved Progress Note: 10/27/23 11:46 48 years old with history of muscle spasms in the upper back is evaluated in the ER after she was at the gym 2 days ago and since yesterday morning having pain and soreness which got worse after taking shower. Patient pain is reproducible with minimal movements at upper extremities and palpation. No midline tenderness. Lungs clear to auscultation. Her pain is clearly musculoskeletal and not cardiac etiology. Obtain x-rays which are negative for any acute findings. I have given her Toradol and Norflex, on reevaluation she is feeling much improved. Will continue with muscle relaxants and NSAIDs to go home and outpatient follow-up recommended. Discussed signs symptoms of worsening needing return to ER which she seems understanding. Stable for discharge. Counseled pt/family regarding: diagnosis, need for follow-up, rad results Medical Desision Making - Diagnostic Testing Diagnostic test were ordered, analyzed, and reviewed by me: Yes Radiological Interpretation: Reviewed by me - Risk of complications The pt has a mod risk of morbidity or mortality based on: Need for prescription drug management - Departure Departure Disposition: Home Clinical Impression: Spasm of thoracic back muscle Condition: Stable Critical Care Time: No Referrals: DAVON FAIRCHILD MD [Primary Care Provider] - Follow up with PCP 1 day Instructions: Muscle Spasm ED Additional Instructions: Take Tylenol/diclofenac as needed. Follow-up with primary care for reevaluation. Return to ER for worsening of pain or if having chest pain, difficulty breathing etc. Prescriptions: Diclofenac Sodium 50 mg [Voltaren 50 mg] 50 mg PO TID PRN 10 Days #25 tablet PRN Reason: Pain Tizanidine HCl [Zanaflex] 2 mg PO TID PRN 7 Days #20 cap PRN Reason: Pain
[2023-10-27 12:07] VITALS: BP 152/90; PULSE 56; RESP 16
== END 2023-10-27 12:09 | disposition home or self-care (01) ==
LOC: ED 09:53
DX: M62.830 Muscle spasm of back (principal); M54.6 Pain in thoracic spine; Z72.0 Tobacco use; Z79.899 Other long term (current) drug therapy
CPT/HCPCS: 71046; 96372; 99283; J1885; J2360

== ENCOUNTER 2024-04-11 13:46 | Day surgery (SDC) | payer OTHER ==
[2024-04-11] MEDS ORDERED: LIDOCAINE HCL 2% 100 MG/5 ML IJ ONE (13:47)
[2024-04-11] MEDS ORDERED: propofoL IV ONE ×2 (15:22→15:27)
[2024-04-11] MEDS ORDERED: Xylocaine-Mpf 2% 5 Ml Vial ONE (15:24)
--- NOTE | 2024-04-11 16:34 | XRAY ---
Indication: Bilateral T9-T11 MBB. Intraoperative fluoroscopy provided for 15 seconds. 3 digital spot images submitted for interpretation demonstrates posterior needle tips projecting over expected left and right T9-T11 nerve roots. Correlate with intraoperative findings/report.
--- NOTE | 2024-04-11 16:38 | XRAY ---
15 seconds of fluoroscopy were used in surgery for a bilateral T9-T11 MBB.
== END 2024-04-11 15:53 | disposition home or self-care (01) ==
LOC: SDC-PAIN 13:46
PROVIDERS: ATTEND Psychiatry & Neurology Pain Medicine
DX: M47.814 Spondylosis without myelopathy or radiculopathy, thoracic region (principal)
CPT/HCPCS: 64490; 64491; 72020; 77002; J2704

== ENCOUNTER 2024-04-12 09:59 | Emergency (ER) | payer OTHER | END 2024-04-12 11:08 | disposition left against medical advice (07) | LOC: ED 09:59 | DX: Z53.21 Procedure and treatment not carried out due to patient leaving prior to being seen by health care provider (principal) ==